=== PATIENT | female | born 1945 | race Caucasian/White ===

== ENCOUNTER 2017-10-30 03:31 | Emergency (ER) | payer MEDICARE, OTHER ==
[~2017-10-30] VITALS: Ht 177.8 cm; Wt 104.5 kg
[~2017-10-30 03:31] MED LIST: ALBU17AE26 INH; ASPI-1265 PO; BECL8.7A5 IH; DULO-31 PO; ESOM40CA30 PO; FENT1PAT7 TD; FURO-150 PO; GLIP10TA11 PO; LINA5TAB4 PO; METF500T PO; NEBI5TAB10 PO; POTA20TA19 PO; PRAM1TAB4 PO; PRED5TAB PO; QUET25TA PO
[2017-10-30 04:04] LABS: BASOPHILS # (AUTO) 0.1 X10'3 (0-0.2); BASOPHILS % (AUTO) 0.7 % (0-1); EOSINOPHILS # (AUTO) 0.3 X10'3 (0-0.9); EOSINOPHILS % (AUTO) 4.1 % (0-6); HEMATOCRIT 37.9 % (35.0-45.0); LYMPHOCYTES # (AUTO) 0.7 X10'3 (1.1-4.8); LYMPHOCYTES % (AUTO) 9.8 % (21-51); MEAN CORPUSCULAR HEMOGLOBIN 30.9 PG (27.0-31.0); MEAN CORPUSCULAR HGB CONC 34.3 % (33.0-36.5); MEAN CORPUSCULAR VOLUME 90.1 FL (78-98); MEAN PLATELET VOLUME 9.5 FL (7.4-10.4); MONOCYTES # (AUTO) 0.2 X10'3 (0-0.9); MONOCYTES % (AUTO) 2.9 % (2-12); NEUTROPHILS # (AUTO) 6.2 X10'3 (1.8-7.7); NEUTROPHILS % (AUTO) 82.5 % (42-75); PLATELET COUNT 186 X10'3 (140-440); WHITE BLOOD COUNT 7.6 X10'3 (4.5-11.0)
[2017-10-30 04:19] LABS: ALANINE AMINOTRANSFERASE 45 U/L (12-78); ALBUMIN 3.3 G/DL (3.4-5.0); ALBUMIN/GLOBULIN RATIO 0.7 (1.1-1.5); ALKALINE PHOSPHATASE 118 IU/L (46-116); ANION GAP 11 (8-16); ASPARTATE AMINO TRANSFERASE 28 U/L (10-37); BILIRUBIN,TOTAL 0.2 MG/DL (0.1-1.0); BLOOD UREA NITROGEN 12 MG/DL (7-18); BUN/CREATININE RATIO 10.1 (6.6-38.0); CALCIUM 9.2 MG/DL (8.5-10.1); CHLORIDE 103 MMOL/L (99-107); CREATININE 1.19 MG/DL (0.40-0.90); GLUCOSE 209 MG/DL (70-104); MAGNESIUM 1.5 MG/DL (1.5-2.4); POTASSIUM 4.2 MMOL/L (3.5-5.1); SODIUM 141 MMOL/L (135-145); TOTAL CARBON DIOXIDE 26.9 MMOL/L (24-32); TOTAL PROTEIN 8.1 G/DL (6.4-8.2); eGFR 44 ML/MIN
[2017-10-30 04:48] VITALS: BP 88/58
== END 2017-10-30 04:50 | disposition home or self-care (01) ==
LOC: ER 03:32
DX: M62.838 Other muscle spasm (principal); I11.0 Hypertensive heart disease with heart failure; I50.9 Heart failure, unspecified; I25.10 Atherosclerotic heart disease of native coronary artery without angina pectoris; J44.9 Chronic obstructive pulmonary disease, unspecified; K21.9 Gastro-esophageal reflux disease without esophagitis; E11.9 Type 2 diabetes mellitus without complications; M06.9 Rheumatoid arthritis, unspecified; G89.29 Other chronic pain; Z79.82 Long term (current) use of aspirin; Z79.84 Long term (current) use of oral hypoglycemic drugs; Z88.5 Allergy status to narcotic agent; Z88.8 Allergy status to other drugs, medicaments and biological substances
CPT/HCPCS: 36415; 80053; 83735; 85025; 99284

== ENCOUNTER 2018-01-11 22:49 | Emergency (ER) | payer MEDICARE, OTHER ==
[~2018-01-11] VITALS: Ht 172.7 cm; Wt 110.9 kg
[~2018-01-11 22:49] MED LIST changes: -BECL8.7A5 IH; +BUDE10.2 INH; +CALC1TAB77 PO; +CHOL100046 PO; +ERGO500014 PO; +FERR-119 PO; -GLIP10TA11 PO; +HYDR-565 PO; +LANTUS SQ; -NEBI5TAB10 PO; +POTA-82 PO; -POTA20TA19 PO; +ZIN220C PO; +acetylcysteine PO
[2018-01-12 02:11] LABS: BASOPHILS # (AUTO) 0.1 X10'3 (0-0.2); BASOPHILS % (AUTO) 0.6 % (0-1); EOSINOPHILS # (AUTO) 0.4 X10'3 (0-0.9); EOSINOPHILS % (AUTO) 3.6 % (0-6); HEMATOCRIT 43.5 % (35.0-45.0); HEMOGLOBIN 14.3 g/dl (12.0-16.0); LYMPHOCYTES # (AUTO) 0.9 X10'3 (1.1-4.8); LYMPHOCYTES % (AUTO) 9.1 % (21-51); MEAN CORPUSCULAR HEMOGLOBIN 29.7 PG (27.0-31.0); MEAN CORPUSCULAR HGB CONC 32.9 % (33.0-36.5); MEAN CORPUSCULAR VOLUME 90.2 FL (78-98); MEAN PLATELET VOLUME 9.5 FL (7.4-10.4); MONOCYTES # (AUTO) 0.1 X10'3 (0-0.9); NEUTROPHILS # (AUTO) 8.8 X10'3 (1.8-7.7); NEUTROPHILS % (AUTO) 85.7 % (42-75); PLATELET COUNT 336 X10'3 (140-440); RED BLOOD COUNT 4.82 X10'6 (4.20-5.60); RED CELL DISTRIBUTION WIDTH 14.7 % (11.5-14.5); WHITE BLOOD COUNT 10.2 X10'3 (4.5-11.0)
[2018-01-12 02:14] LABS: ALANINE AMINOTRANSFERASE 35 U/L (12-78); ALBUMIN 3.3 G/DL (3.4-5.0); ALBUMIN/GLOBULIN RATIO 0.6 (1.1-1.5); ALKALINE PHOSPHATASE 122 IU/L (46-116); ANION GAP 11 (8-16); ASPARTATE AMINO TRANSFERASE 38 U/L (10-37); BILIRUBIN,TOTAL 0.2 MG/DL (0.1-1.0); BLOOD UREA NITROGEN 19 MG/DL (7-18); BUN/CREATININE RATIO 14.8 (6.6-38.0); CHLORIDE 102 MMOL/L (99-107); CREATININE 1.28 MG/DL (0.40-0.90); GLUCOSE 149 MG/DL (70-104); POTASSIUM 3.9 MMOL/L (3.5-5.1); SODIUM 140 MMOL/L (135-145); TOTAL CARBON DIOXIDE 27.3 MMOL/L (24-32); TOTAL PROTEIN 9.1 G/DL (6.4-8.2); eGFR 41 ML/MIN
[2018-01-12] MEDS ORDERED: LEVO750T21 PO (02:54)
[2018-01-12] MEDS ORDERED: dexamethasone 4mg tablet PO ONE (02:55)
[2018-01-12] MEDS ORDERED: levoFLOXACIN 500mg tablet PO ONE (02:55)
[2018-01-12 03:34] VITALS: BP 104/54
== END 2018-01-12 03:35 | disposition home or self-care (01) ==
LOC: ER 22:50
DX: J40 Bronchitis, not specified as acute or chronic (principal); J44.9 Chronic obstructive pulmonary disease, unspecified; K21.9 Gastro-esophageal reflux disease without esophagitis; I48.91 Unspecified atrial fibrillation; I25.10 Atherosclerotic heart disease of native coronary artery without angina pectoris; I11.0 Hypertensive heart disease with heart failure; I50.9 Heart failure, unspecified; G89.29 Other chronic pain; E11.9 Type 2 diabetes mellitus without complications; M19.90 Unspecified osteoarthritis, unspecified site; M06.9 Rheumatoid arthritis, unspecified; Z90.49 Acquired absence of other specified parts of digestive tract; Z88.5 Allergy status to narcotic agent; Z88.8 Allergy status to other drugs, medicaments and biological substances; Z79.82 Long term (current) use of aspirin; Z79.4 Long term (current) use of insulin; Z79.899 Other long term (current) drug therapy; Z79.84 Long term (current) use of oral hypoglycemic drugs
CPT/HCPCS: 36415; 71046; 80053; 85025; 93005; 99285; J8540

== ENCOUNTER 2018-06-07 07:07 | Observation (INO) | payer MEDICARE, OTHER ==
[2018-06-06 14:09] LABS: BASOPHILS % (AUTO) 0.4 % (0-1); EOSINOPHILS # (AUTO) 0.4 X10'3 (0-0.9); EOSINOPHILS % (AUTO) 7.5 % (0-6); HEMATOCRIT 37.5 % (35.0-45.0); HEMOGLOBIN 12.6 g/dl (12.0-16.0); LYMPHOCYTES % (AUTO) 20.1 % (21-51); MEAN CORPUSCULAR HEMOGLOBIN 29.1 PG (27.0-31.0); MEAN CORPUSCULAR HGB CONC 33.6 % (33.0-36.5); MEAN CORPUSCULAR VOLUME 86.7 FL (78-98); MEAN PLATELET VOLUME 10.2 FL (7.4-10.4); MONOCYTES # (AUTO) 0.4 X10'3 (0-0.9); NEUTROPHILS # (AUTO) 3.3 X10'3 (1.8-7.7); PLATELET COUNT 188 X10'3 (140-440); RED BLOOD COUNT 4.32 X10'6 (4.20-5.60); RED CELL DISTRIBUTION WIDTH 15.6 % (11.5-14.5)
[2018-06-06 14:15] LABS: ALBUMIN 3.3 G/DL (3.4-5.0); ANION GAP 7 (8-16); BLOOD UREA NITROGEN 19 MG/DL (7-18); BUN/CREATININE RATIO 17.1 (6.6-38.0); CALCIUM 8.9 MG/DL (8.5-10.1); CHLORIDE 104 MMOL/L (99-107); CREATININE 1.11 MG/DL (0.40-0.90); GLUCOSE 120 MG/DL (70-104); POTASSIUM 4.4 MMOL/L (3.5-5.1); SODIUM 140 MMOL/L (135-145); TOTAL CARBON DIOXIDE 29.5 MMOL/L (24-32); eGFR 48 ML/MIN
[2018-06-06 14:59] LABS: PARTIAL THROMBOPLASTIN TIME 32 SECONDS (22-32); PROTHROMBIN TIME 10.3 SECONDS (9.0-12.0)
[2018-06-07] VITALS (21 sets, daily range): BP systolic 108–169; BP diastolic 43–90
[~2018-06-07] VITALS: Ht 172.7 cm; Wt 109.4 kg
[2018-06-07] MEDS ORDERED: diphenhydrAMINE 25mg capsule PO PRN (07:30)
[2018-06-07] MEDS ORDERED: DULO60CA45 PO (07:43)
[2018-06-07] MEDS ORDERED: ASPI81TA52 PO (07:43)
[2018-06-07] MEDS ORDERED: CALC600T12 PO (07:48)
[2018-06-07] MEDS ORDERED: POTA-82 PO (07:48)
[2018-06-07] MEDS ORDERED: ALBU8.5H8 INH (07:48)
[2018-06-07] MEDS ORDERED: CLOP75TA15 PO (07:49)
[2018-06-07] MEDS: normal saline 1000ml 1,000 ML IV SCH ×2 (08:17→16:32)
[2018-06-07] MEDS ORDERED: iohexol 350MG/ML 100ml bottle IV ONE ×2 (08:53→10:20)
[2018-06-07] MEDS ORDERED: LIDOcaine 1% 30ml preserv. free vial ONE ×2 (08:53→15:15)
[2018-06-07] MEDS ORDERED: heparin 1,000unit/ml 10ml vial 10 ML ONE (08:53)
[2018-06-07] MEDS ORDERED: midazolam 2 mg/2 ml injection ONE (08:53)
[2018-06-07] MEDS ORDERED: fentaNYL/PF 50MCG/1 ML 2ML syringe ONE (08:53)
[2018-06-07] MEDS ORDERED: nitroGLYCERIN-Tridil 50MG/D5W 250 ML IV ONE (08:53)
[2018-06-07] MEDS ORDERED: iohexol 350 MG/ML 50ML vial IV ONE ×3 (08:53→11:22)
[2018-06-07] MEDS ORDERED: HYDROmorphone 1 mg/ml syringe ONE (10:07)
[2018-06-07] MEDS ORDERED: adenosine 90 MG/30ml kit =/or below 120kg Cath Lab IV ONE (10:34)
[2018-06-07] MEDS ORDERED: clopidogrel 300mg tablet ONE (11:23)
[2018-06-07] MEDS ORDERED: proCHLORperazine 10 MG/2 ml inj IV PRN (12:35)
[2018-06-07] MEDS ORDERED: HYDROcodone/acetaminophen 10/325mg tab PO PRN (12:35)
[2018-06-07] MEDS ORDERED: acetaminophen 325mg tablet PO PRN (12:35)
[2018-06-07] MEDS ORDERED: OXAZEpam 15mg capsule PO PRN (12:35)
[2018-06-07] MEDS ORDERED: cyclobenzaprine 10mg tablet PO PRN (12:40)
[2018-06-07] MEDS ORDERED: aspirin 81mg tab.chew PO ONE (12:40)
[2018-06-07] MEDS ORDERED: non-formulary drug (Albuterol Sulfate (Proair Hfa) 2 PUFFS) INH SCH (12:45)
[2018-06-07] MEDS: furosemide 20MG tablet PO SCH ×2 (12:55→21:01)
[2018-06-07] MEDS: metFORMIN 500mg tablet PO SCH (12:57)
[2018-06-07] MEDS ORDERED: fentaNYL 75 MCG/hour patch.TD72 TD SCH (14:09)
[2018-06-07] MEDS ORDERED: albuterol 2.5 MG/3 ML nebule NEB PRN (14:15)
[2018-06-07] MEDS: HYDROcodone/acetaminophen 10/325mg tab PO PRN ×2 (14:57→21:01)
[2018-06-07] MEDS: albuterol 2.5 MG/3 ML nebule NEB SCH ×2 (15:00→22:59)
[2018-06-07] MEDS: docusate sod 100mg capsule PO SCH (20:00)
[2018-06-07] MEDS ORDERED: insulin glargine (Lantus) pen - multi-dose SQ SCH (21:00)
[2018-06-07] MEDS ORDERED: magnesium hydroxide 30ml (MOM) UD suspension PO SCH (21:00)
[2018-06-07] MEDS ORDERED: potassium Cl 20 mEq SR tablet PO SCH (21:00)
[2018-06-07] MEDS: pramipexole 1mg tablet PO SCH (21:19)
[2018-06-07] MEDS: budesonide 0.5mg/2ml UD nebule IH SCH (22:58)
[2018-06-08 03:00] VITALS: BP 133/43
[2018-06-08] MEDS: albuterol 2.5 MG/3 ML nebule NEB SCH ×2 (03:27→08:05)
[2018-06-08 06:00] VITALS: BP 114/60
[2018-06-08 06:23] LABS: BASOPHILS % (AUTO) 0.2 % (0-1); EOSINOPHILS # (AUTO) 0.3 X10'3 (0-0.9); EOSINOPHILS % (AUTO) 4.9 % (0-6); HEMATOCRIT 34.9 % (35.0-45.0); HEMOGLOBIN 11.6 g/dl (12.0-16.0); LYMPHOCYTES # (AUTO) 0.8 X10'3 (1.1-4.8); LYMPHOCYTES % (AUTO) 12.9 % (21-51); MEAN CORPUSCULAR HEMOGLOBIN 28.9 PG (27.0-31.0); MEAN CORPUSCULAR HGB CONC 33.2 % (33.0-36.5); MEAN CORPUSCULAR VOLUME 87.1 FL (78-98); MEAN PLATELET VOLUME 10.8 FL (7.4-10.4); MONOCYTES # (AUTO) 0.3 X10'3 (0-0.9); MONOCYTES % (AUTO) 5.8 % (2-12); NEUTROPHILS # (AUTO) 4.5 X10'3 (1.8-7.7); NEUTROPHILS % (AUTO) 76.2 % (42-75); PLATELET COUNT 149 X10'3 (140-440); RED BLOOD COUNT 4.01 X10'6 (4.20-5.60); RED CELL DISTRIBUTION WIDTH 15.6 % (11.5-14.5); WHITE BLOOD COUNT 5.9 X10'3 (4.5-11.0)
[2018-06-08 07:08] LABS: ALBUMIN 2.9 G/DL (3.4-5.0); ANION GAP 7 (8-16); BLOOD UREA NITROGEN 20 MG/DL (7-18); BUN/CREATININE RATIO 17.1 (6.6-38.0); CALCIUM 8.6 MG/DL (8.5-10.1); CHLORIDE 103 MMOL/L (99-107); CHOLESTEROL 129 MG/DL (0-200); CREATININE 1.17 MG/DL (0.40-0.90); GLUCOSE 143 MG/DL (70-104); HDL CHOLESTEROL 26 MG/DL (35-60); LDL CHOLESTEROL 70 MG/DL (50-100); POTASSIUM 3.7 MMOL/L (3.5-5.1); SODIUM 139 MMOL/L (135-145); TOTAL CARBON DIOXIDE 28.6 MMOL/L (24-32); TRIGLYCERIDES 272 MG/DL (20-135); eGFR 45 ML/MIN
[2018-06-08] MEDS ORDERED: pantoprazole 40mg Tablet.DR PO SCH (07:30)
[2018-06-08] MEDS ORDERED: METF500T PO (07:43)
[2018-06-08] MEDS ORDERED: ATOR40TA PO (07:43)
[2018-06-08] MEDS ORDERED: ASPI-1 PO (07:43)
[2018-06-08] MEDS: docusate sod 100mg capsule PO SCH (07:53)
[2018-06-08] MEDS: furosemide 20MG tablet PO SCH (07:54)
[2018-06-08] MEDS: pramipexole 1mg tablet PO SCH (07:59)
[2018-06-08] MEDS ORDERED: ferrous sulfate 325mg tablet PO SCH (08:00)
[2018-06-08] MEDS ORDERED: QUEtiapine 25mg tablet PO SCH (08:00)
[2018-06-08] MEDS ORDERED: ZINC SULFATE PO SCH (08:00)
[2018-06-08] MEDS ORDERED: linagliptin 5mg tablet PO SCH (08:00)
[2018-06-08] MEDS ORDERED: potassium Cl 20 mEq SR tablet PO SCH (08:00)
[2018-06-08] MEDS ORDERED: predniSONE 5mg tablet PO SCH (08:00)
[2018-06-08] MEDS ORDERED: vitamin D (cholecalciferol) 1,000 unit tablet PO SCH (08:00)
[2018-06-08] MEDS ORDERED: duloxetine 30mg CAPSULE.DR PO SCH (08:00)
[2018-06-08] MEDS ORDERED: clopidogrel 75mg tablet PO SCH (08:00)
[2018-06-08] MEDS: budesonide 0.5mg/2ml UD nebule IH SCH (08:05)
[2018-06-08] MEDS ORDERED: aspirin 325mg tablet PO SCH (08:30)
== END 2018-06-08 12:20 | disposition home or self-care (01) ==
LOC: SSTAY O 07:07 → PCU 3S 07:08 → SSTAY O 18:49
PROVIDERS: ADMIT Internal Medicine Cardiovascular Disease; ATTEND Internal Medicine Cardiovascular Disease
DX: I25.119 Atherosclerotic heart disease of native coronary artery with unspecified angina pectoris (principal); E11.9 Type 2 diabetes mellitus without complications; I10 Essential (primary) hypertension; E78.5 Hyperlipidemia, unspecified; Z79.82 Long term (current) use of aspirin; Z79.4 Long term (current) use of insulin
CPT/HCPCS: 36415; 80048; 80061; 82948; 85025; 85347; 85610; 85730; 87070; 92920; 92978; 93005; 93458; 94640; 94760; 96374; A6257; A6449; C1725; C1753; C1760; C1769; C1874; C9600; G0378; J1170; J1644; J1815; J2250; J3010; J3490; J7030; J7512; J7626; Q0163; Q9967; 92921; 99152; 99153; C9601; C9602; J0153

== ENCOUNTER 2018-07-14 17:12 | Emergency (ER) | payer MEDICARE, OTHER ==
[~2018-07-14] VITALS: Ht 172.7 cm; Wt 104.0 kg
[~2018-07-14 17:12] MED LIST changes: +ALBU8.5H8 INH; +ASPI-1 PO; -ASPI-1265 PO; +ATOR40TA PO; -CALC1TAB77 PO; +CALC600T12 PO; +CLOP75TA15 PO; -DULO-31 PO; +DULO60CA45 PO; +HYDR-4353 PO; -HYDR-565 PO; -acetylcysteine PO
[2018-07-14 17:17] VITALS: BP 142/62
[2018-07-14] MEDS ORDERED: proparacaine 0.5% ophthalmic drops 15ml EACHEYE ONE (17:35)
[2018-07-14] MEDS ORDERED: ERYT1OIN6 RIGHTEYE (17:48)
== END 2018-07-14 18:24 | disposition home or self-care (01) ==
LOC: ER 17:13
DX: T15.91XA Foreign body on external eye, part unspecified, right eye, initial encounter (principal); I48.91 Unspecified atrial fibrillation; I25.10 Atherosclerotic heart disease of native coronary artery without angina pectoris; I11.0 Hypertensive heart disease with heart failure; I50.9 Heart failure, unspecified; J44.9 Chronic obstructive pulmonary disease, unspecified; K21.9 Gastro-esophageal reflux disease without esophagitis; E11.9 Type 2 diabetes mellitus without complications; M19.90 Unspecified osteoarthritis, unspecified site; G89.29 Other chronic pain; Z90.49 Acquired absence of other specified parts of digestive tract; Z88.5 Allergy status to narcotic agent; Z88.8 Allergy status to other drugs, medicaments and biological substances; Z79.82 Long term (current) use of aspirin; Z79.899 Other long term (current) drug therapy; Z79.4 Long term (current) use of insulin
CPT/HCPCS: 99283

== ENCOUNTER 2018-08-02 20:53 | Emergency (ER) | payer MEDICARE, OTHER ==
[~2018-08-02] VITALS: Ht 172.7 cm; Wt 104.5 kg
[~2018-08-02 20:53] MED LIST changes: +ERYT1OIN6 RIGHTEYE
[2018-08-02] MEDS ORDERED: ketorolac trometh inj. 60 MG/2 ML VIAL IM ONE (21:15)
[2018-08-02] MEDS ORDERED: [UNRECOGNIZED DRUG - OTHER] PO (21:39)
[2018-08-02] MEDS ORDERED: FENT1PAT10 TP (21:39)
[2018-08-02 22:03] LABS: BASOPHILS % (AUTO) 0.2 % (0-1); EOSINOPHILS # (AUTO) 0.2 X10'3 (0-0.9); EOSINOPHILS % (AUTO) 1.5 % (0-6); HEMATOCRIT 39.5 % (35.0-45.0); HEMOGLOBIN 12.9 g/dl (12.0-16.0); LYMPHOCYTES # (AUTO) 0.6 X10'3 (1.1-4.8); LYMPHOCYTES % (AUTO) 4.1 % (21-51); MEAN CORPUSCULAR HGB CONC 32.6 % (33.0-36.5); MEAN CORPUSCULAR VOLUME 88.9 FL (78-98); MEAN PLATELET VOLUME 9.9 FL (7.4-10.4); MONOCYTES # (AUTO) 0.3 X10'3 (0-0.9); NEUTROPHILS # (AUTO) 13.2 X10'3 (1.8-7.7); NEUTROPHILS % (AUTO) 92.2 % (42-75); PLATELET COUNT 163 X10'3 (140-440); RED BLOOD COUNT 4.44 X10'6 (4.20-5.60); RED CELL DISTRIBUTION WIDTH 16.3 % (11.5-14.5); WHITE BLOOD COUNT 14.3 X10'3 (4.5-11.0)
[2018-08-02 22:20] LABS: ALANINE AMINOTRANSFERASE 22 U/L (12-78); ALBUMIN/GLOBULIN RATIO 0.7 (1.1-1.5); ALKALINE PHOSPHATASE 109 IU/L (46-116); ANION GAP 5 (8-16); ASPARTATE AMINO TRANSFERASE 21 U/L (10-37); BILIRUBIN,TOTAL 0.3 MG/DL (0.1-1.0); BLOOD UREA NITROGEN 19 MG/DL (7-18); BUN/CREATININE RATIO 14.7 (6.6-38.0); CALCIUM 8.4 MG/DL (8.5-10.1); CHLORIDE 103 MMOL/L (99-107); CREATININE 1.29 MG/DL (0.40-0.90); GLUCOSE 135 MG/DL (70-104); MAGNESIUM 1.6 MG/DL (1.5-2.4); POTASSIUM 4.5 MMOL/L (3.5-5.1); SODIUM 137 MMOL/L (135-145); TOTAL CARBON DIOXIDE 29.5 MMOL/L (24-32); TOTAL PROTEIN 7.4 G/DL (6.4-8.2); eGFR 41 ML/MIN
[2018-08-02 22:34] LABS: CLARITY,URINE SLIGHTLY CLOUDY (Clear); COLOR,URINE YELLOW (Yellow); GLUCOSE, URINE NEGATIVE (Neg); KETONES,URINE NEGATIVE (Neg); LEUKOCYTE ESTERASE ,URINE MODERATE (Neg); NITRITES, URINE NEGATIVE (Neg); OCCULT BLOOD,URINE TRACE-INTACT (Neg); PROTEIN,URINE NEGATIVE (Neg); UROBILINOGEN,URINE 0.2 E.U/dL (0.2-1.0)
[2018-08-02 22:47] LABS: UA COLLECTION TYPE STRAIGHT CATH
[2018-08-02 22:49] LABS: BACTERIA,URINE 4+ /HPF (Neg); WBC,URINE 50-100 /HPF (0-4)
[2018-08-02 22:50] LABS: SQUAMOUS EPITHELIAL CELL,UR MANY /LPF (FEW); WBC CLUMPS,URINE MODERATE /HPF (NEGATIVE)
[2018-08-02 22:51] LABS: RBC,URINE 0-2 /HPF (0-2); RENAL CELLS, URINE FEW /HPF
[2018-08-02] MEDS ORDERED: CefTRIAXone/D5W-Rocephin 1gm 50 ML IV ONE (23:15)
[2018-08-02] MEDS ORDERED: CefTRIAXone 1000mg IM Kit (w/lidocaine diluent) IM ONE (23:30)
[2018-08-02] MEDS ORDERED: CIPR-230 PO (23:34)
[2018-08-03 00:14] VITALS: BP 181/90
== END 2018-08-03 00:17 | disposition home or self-care (01) ==
LOC: ER 20:54
DX: N39.0 Urinary tract infection, site not specified (principal); R06.02 Shortness of breath; I48.91 Unspecified atrial fibrillation; I25.10 Atherosclerotic heart disease of native coronary artery without angina pectoris; I11.0 Hypertensive heart disease with heart failure; I50.9 Heart failure, unspecified; J44.9 Chronic obstructive pulmonary disease, unspecified; K21.9 Gastro-esophageal reflux disease without esophagitis; E11.9 Type 2 diabetes mellitus without complications; G89.29 Other chronic pain; M06.9 Rheumatoid arthritis, unspecified; Z90.49 Acquired absence of other specified parts of digestive tract; Z98.61 Coronary angioplasty status; Z88.5 Allergy status to narcotic agent; Z88.8 Allergy status to other drugs, medicaments and biological substances; Z79.82 Long term (current) use of aspirin; Z79.2 Long term (current) use of antibiotics; Z79.84 Long term (current) use of oral hypoglycemic drugs; Z79.899 Other long term (current) drug therapy
CPT/HCPCS: 36415; 71045; 80053; 81001; 83735; 84145; 85025; 87077; 87088; 87186; 87502; 87503; 93005; 96372; 99285; J0696; J1885; P9612

== ENCOUNTER 2018-09-28 02:17 | Emergency (ER) | payer MEDICARE, OTHER ==
[~2018-09-28] VITALS: Ht 172.7 cm; Wt 114.0 kg
[~2018-09-28 02:17] MED LIST changes: -ALBU17AE26 INH; -ALBU8.5H8 INH; -BUDE10.2 INH; -ERYT1OIN6 RIGHTEYE; +FENT1PAT10 TP; -FENT1PAT7 TD; -LANTUS SQ; -PRED5TAB PO; +[UNRECOGNIZED DRUG - OTHER] PO
[2018-09-28 02:55] LABS: BASOPHILS % (AUTO) 0.6 % (0-1); EOSINOPHILS # (AUTO) 0.3 X10'3 (0-0.9); EOSINOPHILS % (AUTO) 3.9 % (0-6); HEMATOCRIT 40.6 % (35.0-45.0); HEMOGLOBIN 12.9 g/dl (12.0-16.0); LYMPHOCYTES % (AUTO) 12.8 % (21-51); MEAN CORPUSCULAR HGB CONC 31.8 % (33.0-36.5); MEAN CORPUSCULAR VOLUME 91.2 FL (78-98); MONOCYTES # (AUTO) 0.2 X10'3 (0-0.9); NEUTROPHILS # (AUTO) 6.4 X10'3 (1.8-7.7); NEUTROPHILS % (AUTO) 79.7 % (42-75); PLATELET COUNT 182 X10'3 (140-440); RED BLOOD COUNT 4.46 X10'6 (4.20-5.60); RED CELL DISTRIBUTION WIDTH 14.3 % (11.5-14.5); WHITE BLOOD COUNT 7.9 X10'3 (4.5-11.0)
[2018-09-28 03:05] LABS: PROTHROMBIN TIME 10.2 SECONDS (9.0-12.0)
[2018-09-28 03:06] LABS: ALANINE AMINOTRANSFERASE 26 U/L (12-78); ALBUMIN 3.4 G/DL (3.4-5.0); ALBUMIN/GLOBULIN RATIO 0.7 (1.1-1.5); ALKALINE PHOSPHATASE 151 IU/L (46-116); ANION GAP 9 (8-16); ASPARTATE AMINO TRANSFERASE 16 U/L (10-37); BILIRUBIN,TOTAL 0.2 MG/DL (0.1-1.0); BLOOD UREA NITROGEN 22 MG/DL (7-18); BUN/CREATININE RATIO 16.7 (6.6-38.0); CALCIUM 9.5 MG/DL (8.5-10.1); CHLORIDE 102 MMOL/L (99-107); CREATININE 1.32 MG/DL (0.40-0.90); GLUCOSE 211 MG/DL (70-104); PARTIAL THROMBOPLASTIN TIME 30 SECONDS (22-32); POTASSIUM 4.1 MMOL/L (3.5-5.1); SODIUM 139 MMOL/L (135-145); TOTAL CARBON DIOXIDE 27.9 MMOL/L (24-32); TOTAL PROTEIN 8.2 G/DL (6.4-8.2); eGFR 39 ML/MIN
[2018-09-28 03:10] LABS: TROPONIN I < 0.04 NG/ML (0.0-0.05)
--- NOTE | 2018-09-28 04:44 | NUR ---
PATIENT WAS NOT IN LOBBY WHEN CALLED TO BE PLACED IN ROOM. APPARENTLY SHE WAS IN THE RESTROOM. ANOTHER PT WAS ROOMED WHEN WE WERE UNABLE TO FIND HER SO NOW SHE IS WAITING BACK IN THE LOBBY FOR A VACANT ROOM AGAIN.
--- NOTE | 2018-09-28 05:38 | NUR ---
BOTH MYSELF AND ANOTHER RN HAVE TRIED 2 TIMES EACH TO GET 3HR TROP DRAWN FROM PT. WE HAVE BOTH BEEN UNSUCCESSFUL. ANOTHER RN IS TRYING AT THIS TIME. PT IS HAVING A HARD TIME HOLDING STILL AND IS COUGHING WHILE ATTEMPTING TO DRAW. PT ALSO REQUESTING TO HAVE BLOOD DRAWN FROM SPECIFIC AREA
--- NOTE | 2018-09-28 05:54 | NUR ---
3 HR TROP SENT TO LAB
[2018-09-28 06:51] VITALS: BP 140/89
== END 2018-09-28 06:56 | disposition home or self-care (01) ==
LOC: ER 02:17
DX: R07.89 Other chest pain (principal); I11.0 Hypertensive heart disease with heart failure; I25.10 Atherosclerotic heart disease of native coronary artery without angina pectoris; I50.9 Heart failure, unspecified; I48.91 Unspecified atrial fibrillation; K21.9 Gastro-esophageal reflux disease without esophagitis; G89.29 Other chronic pain; J44.9 Chronic obstructive pulmonary disease, unspecified; E11.9 Type 2 diabetes mellitus without complications; Z90.49 Acquired absence of other specified parts of digestive tract; Z98.62 Peripheral vascular angioplasty status; Z88.5 Allergy status to narcotic agent; Z79.82 Long term (current) use of aspirin; Z79.84 Long term (current) use of oral hypoglycemic drugs
CPT/HCPCS: 36415; 71045; 80053; 84484; 85025; 85610; 85730; 93005; 99284

== ENCOUNTER 2018-11-13 13:05 | Inpatient (IN) | payer MEDICARE, OTHER | END 2018-11-17 17:02 | disposition home health service (06) | LOC: ER 13:05 → ED HOLD 15:53 → SUR 3N 20:40 | DX: J44.1 Chronic obstructive pulmonary disease with (acute) exacerbation (principal); J18.9 Pneumonia, unspecified organism; J96.10 Chronic respiratory failure, unspecified whether with hypoxia or hypercapnia; J44.0 Chronic obstructive pulmonary disease with (acute) lower respiratory infection; E11.40 Type 2 diabetes mellitus with diabetic neuropathy, unspecified; I25.10 Atherosclerotic heart disease of native coronary artery without angina pectoris ==

== ENCOUNTER 2019-03-04 15:46 | Inpatient (IN) | payer MEDICARE, OTHER ==
[~2019-03-04] VITALS: Ht 172.7 cm; Wt 109.0 kg
[~2019-03-04 15:46] MED LIST changes: +ALBU8.5H8 INH; -ASPI-1 PO; +ASPI-845 PO; -ATOR40TA PO; +ATOR40TA72 PO; +BUDE10.22 INH; +CALC-1051 PO; -CALC600T12 PO; -CHOL100046 PO; -CLOP75TA15 PO; +CLOP75TA35 PO; -ERGO500014 PO; +ERGO500056 PO; -ESOM40CA30 PO; +ESOM40CA49 PO; -FERR-119 PO; -FURO-150 PO; +FURO40TA4 PO; +GABA-530 PO; +HYDR-3973 PO; -HYDR-4353 PO; +HYDR200T84 PO; +INSU100V11 SQ; +INSU100V9 SQ; +LACT1CAP26 PO; +METF-436 PO; -METF500T PO; +OSEL30CA PO; -ZIN220C PO; -[UNRECOGNIZED DRUG - OTHER] PO
[2019-03-04] MEDS ORDERED: acetaminophen 325mg tablet PO STA (16:03)
[2019-03-04] MEDS ORDERED: ipratropium/albuterol 3ml nebule NEB ONE (16:05)
[2019-03-04] MEDS ORDERED: normal saline 1000ML IV soln IV ONE (16:05)
[2019-03-04] MEDS ORDERED: levoFLOXACIN-Levaquin 750MG/D5 150 ML IV ONE (16:05)
[2019-03-04] MEDS ORDERED: predniSONE 20 mg tablet PO ONE (16:25)
[2019-03-04 16:44] LABS: EOSINOPHILS # (AUTO) 0.1 X10'3 (0-0.9); HEMOGLOBIN 13.1 g/dl (12.0-16.0); LYMPHOCYTES # (AUTO) 0.7 X10'3 (1.1-4.8)
[2019-03-04 16:45] LABS: BASOPHILS % (AUTO) 0.2 % (0-1); EOSINOPHILS % (AUTO) 1.5 % (0-6); HEMATOCRIT 40.1 % (35.0-45.0); LYMPHOCYTES % (AUTO) 8.4 % (21-51); MEAN CORPUSCULAR HEMOGLOBIN 28.8 PG (27.0-31.0); MEAN CORPUSCULAR HGB CONC 32.6 g/dL (33.0-36.5); MEAN CORPUSCULAR VOLUME 88.3 FL (78-98); MEAN PLATELET VOLUME 9.9 FL (7.4-10.4); MONOCYTES # (AUTO) 0.8 X10'3 (0-0.9); MONOCYTES % (AUTO) 9.3 % (2-12); NEUTROPHILS # (AUTO) 7.1 X10'3 (1.8-7.7); NEUTROPHILS % (AUTO) 80.6 % (42-75); PLATELET COUNT 188 X10'3 (140-440); RED BLOOD COUNT 4.55 X10'6 (4.20-5.60); WHITE BLOOD COUNT 8.8 X10'3 (4.5-11.0)
[2019-03-04 16:55] LABS: ALANINE AMINOTRANSFERASE 31 U/L (12-78); ALBUMIN 3.3 G/DL (3.4-5.0); ALBUMIN/GLOBULIN RATIO 0.6 (1.1-1.5); ALKALINE PHOSPHATASE 166 IU/L (46-116); ANION GAP 8 (8-16); ASPARTATE AMINO TRANSFERASE 20 U/L (10-37); BILIRUBIN,TOTAL 0.3 MG/DL (0.1-1.0); BLOOD UREA NITROGEN 27 MG/DL (7-18); BUN/CREATININE RATIO 20.5 (6.6-38.0); CALCIUM 9.4 MG/DL (8.5-10.1); CHLORIDE 100 MMOL/L (99-107); CREATININE 1.32 MG/DL (0.40-0.90); GLUCOSE 278 MG/DL (70-104); MAGNESIUM 1.8 MG/DL (1.5-2.4); POTASSIUM 3.7 MMOL/L (3.5-5.1); SODIUM 134 MMOL/L (135-145); TOTAL CARBON DIOXIDE 25.8 MMOL/L (24-32); TOTAL PROTEIN 8.5 G/DL (6.4-8.2); eGFR 39 ML/MIN
[2019-03-04 17:05] LABS: PARTIAL THROMBOPLASTIN TIME 39 SECONDS (22-32)
[2019-03-04] MEDS ORDERED: iohexol 350MG/ML 100ml bottle IV ONE (17:37)
--- NOTE | 2019-03-04 17:59 | NUR ---
BSC WITH HAT PROVIDED FOR URINE SPECIMAN, CLEAN CATCH INSTRUCTIONS, VERBALIZES UNDERSTANDING
[2019-03-04 18:23] LABS: CLARITY,URINE CLEAR (Clear); COLOR,URINE YELLOW (Yellow); GLUCOSE, URINE 500 mg/dl (Neg); KETONES,URINE NEGATIVE (Neg); LEUKOCYTE ESTERASE ,URINE NEGATIVE (Neg); NITRITES, URINE NEGATIVE (Neg); OCCULT BLOOD,URINE NEGATIVE (Neg); PROTEIN,URINE TRACE mg/dl (Neg); UROBILINOGEN,URINE 0.2 E.U/dL (0.2-1.0)
[2019-03-04 18:32] LABS: UA COLLECTION TYPE CLN CATCH MIDSTREAM
[2019-03-04 18:35] LABS: BACTERIA,URINE FEW /HPF (Neg); MUCUS STRANDS NONE SEEN /LPF (Neg); RBC,URINE NONE SEEN /HPF (0-2); SQUAMOUS EPITHELIAL CELL,UR MODERATE /LPF (FEW); WBC,URINE 0-4 /HPF (0-4)
[2019-03-04] MEDS ORDERED: glucagon, human recombinant 1mg kit SUBCUT PRN (19:30)
[2019-03-04] MEDS ORDERED: HYDROmorphone inj. 0.5 MG/0.5 ML DISP.SYRIN IV PRN (19:30)
[2019-03-04] MEDS ORDERED: acetaminophen 325mg tablet PO PRN ×2 (19:30)
[2019-03-04] MEDS ORDERED: dextrose ORAL solution 15 GM/59 ML bottle PO PRN ×2 (19:30)
[2019-03-04] MEDS ORDERED: potassium CL 10mEq/100ml bag 100 ML IV PRN (19:30)
[2019-03-04] MEDS ORDERED: potassium Cl 20 mEq SR tablet PO PRN ×2 (19:30)
[2019-03-04] MEDS ORDERED: MESSAGE TO PHARMACY PO ONE (19:30)
[2019-03-04] MEDS ORDERED: magnesium 4gm in 100ml NS 100 ML IV PRN (19:30)
[2019-03-04] MEDS ORDERED: magnesium 2GM in 50ml NS 50 ML IV PRN (19:30)
[2019-03-04] MEDS ORDERED: ondansetron/PF 4mg/2ml inj IV PRN (19:30)
[2019-03-04] MEDS ORDERED: mag hydrox/Alum hydrox/simeth 30ml oral suspension PO PRN (19:30)
[2019-03-04] MEDS ORDERED: docusate sod 100mg capsule PO PRN (19:30)
[2019-03-04] MEDS ORDERED: potassium Cl 40MEQ/NS 500ml 500 ML IV PRN (19:30)
[2019-03-04] MEDS ORDERED: ipratropium/albuterol 3ml nebule NEB PRN (19:30)
[2019-03-04] MEDS ORDERED: HYDROmorphone 1 mg/ml syringe IV PRN (19:30)
[2019-03-04] MEDS ORDERED: dextrose 50%-water 50ml dispensing syringe IV PRN ×2 (19:30)
[2019-03-04] MEDS ORDERED: BUDE10.2 INH (19:56)
[2019-03-04] MEDS ORDERED: DIGO125T78 PO (19:56)
[2019-03-04] MEDS ORDERED: ATOR40TA71 PO (19:56)
[2019-03-04] MEDS ORDERED: ALBU8.5H8 IH (19:59)
--- NOTE | 2019-03-04 20:47 | NUR ---
Patient in room . I have received report from MAHSA Jordan and had the opportunity to ask questions and assume patient care.
[2019-03-04 21:00] VITALS: BP 137/65
[2019-03-04] MEDS ORDERED: pramipexole 1mg tablet PO SCH (21:00)
--- NOTE | 2019-03-04 21:05 | NUR ---
Patient arrived to floor with tech via wheelchair, walked SBA to bed. No apparent distress.
[2019-03-04 21:17] LABS: HEMOGLOBIN A1C 10.4 % (4.5-6.2)
[2019-03-04] MEDS: insulin glargine (Lantus) pen - multi-dose SQ SCH (21:36)
[2019-03-04] MEDS: insulin Lispro (HumaLOG) vial - multi-dose SQ SCH (21:38)
[2019-03-04] MEDS: QUEtiapine 25mg tablet PO SCH (21:40)
[2019-03-04] MEDS: gabapentin 100mg capsule PO SCH (21:40)
[2019-03-04] MEDS: digoxin 125mcg (0.125mg) tablet PO SCH (21:41)
[2019-03-04] MEDS ORDERED: pramipexole 0.25mg tablet PO SCH (21:56)
[2019-03-04] MEDS ORDERED: pramipexole 0.25mg tablet PO ONE (22:20)
[2019-03-04] MEDS ORDERED: normal saline 1000ml 1,000 ML IV SCH (22:40)
[2019-03-04] MEDS: clonazePAM 0.5mg tablet PO PRN (22:41)
--- NOTE | 2019-03-04 23:25 | NUR ---
Patient c/o anxiety and pain (chronic). Has fentanyl patch on left upper shoulder which was placed at home this AM. Blood sugar prior to dinner was 434. Called MD to verify administration of dilaudid for chronic pain and ask whether he would like fluids for blood sugar. States dilaudid okay for chronic pain and to start NS @ 100. Patient polyphagic and polydypsic and has urinated 2x missing the hat.
[2019-03-05] VITALS: BP 129/62
[2019-03-05] MEDS: methylPREDNISolone sod succ 125mg/2ml vial IV SCH ×2 (00:53→08:17)
[2019-03-05] MEDS ORDERED: ipratropium 0.5 MG/2.5ML nebule IH SCH (02:00)
[2019-03-05] MEDS: levalbuterol 0.63mg/3ml nebule IH SCH ×4 (03:56→21:02)
[2019-03-05] MEDS: ipratropium 0.5 MG/2.5ML nebule IH SCH ×4 (03:56→21:02)
[2019-03-05 06:05] LABS: BASOPHILS % (AUTO) 0.1 % (0-1); EOSINOPHILS % (AUTO) 0.1 % (0-6); HEMATOCRIT 37.5 % (35.0-45.0); HEMOGLOBIN 12.7 g/dl (12.0-16.0); LYMPHOCYTES # (AUTO) 0.4 X10'3 (1.1-4.8); LYMPHOCYTES % (AUTO) 6.1 % (21-51); MEAN CORPUSCULAR HGB CONC 33.8 g/dL (33.0-36.5); MEAN CORPUSCULAR VOLUME 88.8 FL (78-98); MEAN PLATELET VOLUME 10.9 FL (7.4-10.4); MONOCYTES # (AUTO) 0.1 X10'3 (0-0.9); MONOCYTES % (AUTO) 1.1 % (2-12); NEUTROPHILS # (AUTO) 6.8 X10'3 (1.8-7.7); NEUTROPHILS % (AUTO) 92.6 % (42-75); PLATELET COUNT 182 X10'3 (140-440); RED BLOOD COUNT 4.22 X10'6 (4.20-5.60); RED CELL DISTRIBUTION WIDTH 14.7 % (11.5-14.5); WHITE BLOOD COUNT 7.3 X10'3 (4.5-11.0)
[2019-03-05 06:11] LABS: ALANINE AMINOTRANSFERASE 28 U/L (12-78); ALBUMIN/GLOBULIN RATIO 0.6 (1.1-1.5); ALKALINE PHOSPHATASE 148 IU/L (46-116); ANION GAP 9 (8-16); ASPARTATE AMINO TRANSFERASE 16 U/L (10-37); BILIRUBIN,TOTAL 0.3 MG/DL (0.1-1.0); BLOOD UREA NITROGEN 26 MG/DL (7-18); BUN/CREATININE RATIO 21.5 (6.6-38.0); CALCIUM 8.8 MG/DL (8.5-10.1); CHLORIDE 102 MMOL/L (99-107); CREATININE 1.21 MG/DL (0.40-0.90); GLUCOSE 421 MG/DL (70-104); MAGNESIUM 1.7 MG/DL (1.5-2.4); POTASSIUM 4.3 MMOL/L (3.5-5.1); SODIUM 134 MMOL/L (135-145); TOTAL CARBON DIOXIDE 23.4 MMOL/L (24-32); eGFR 43 ML/MIN
--- NOTE | 2019-03-05 06:47 | NUR ---
Patient in room [facility] 353. I have received report from Cira Haley RN and had the opportunity to ask questions and assume patient care.
--- NOTE | 2019-03-05 06:51 | NUR ---
Problems reprioritized. Patient report given, questions answered & plan of care reviewed with MAHSA ingram.
[2019-03-05 07:00] VITALS: BP 122/62
[2019-03-05] MEDS: K and/or MAG REPLACEMENT MC SCH (08:00)
[2019-03-05] MEDS: insulin Lispro (HumaLOG) vial - multi-dose SQ SCH ×4 (08:12→21:28)
[2019-03-05] MEDS: digoxin 125mcg (0.125mg) tablet PO SCH (08:16)
[2019-03-05] MEDS: aspirin 325mg tablet, delayed-release (Ecotrin) PO SCH (08:16)
[2019-03-05] MEDS: lactobacillus rhamnosus 10,000 MMU CELLS/CAPSULE PO SCH ×2 (08:16→21:00)
[2019-03-05] MEDS: pantoprazole 40mg Tablet.DR PO SCH (08:17)
[2019-03-05] MEDS: gabapentin 100mg capsule PO SCH ×3 (08:17→20:59)
[2019-03-05] MEDS: clopidogrel 75mg tablet PO SCH (08:17)
[2019-03-05] MEDS: duloxetine 30mg CAPSULE.DR PO SCH (08:17)
[2019-03-05] MEDS: atorvastatin 20mg tablet PO SCH ×2 (08:17→21:00)
[2019-03-05] MEDS: calcium carbonate/vitamin D3 tablet PO SCH ×2 (08:17→20:58)
[2019-03-05] MEDS: enoxaparin 40mg/0.4ml syringe SQ SCH (08:18)
[2019-03-05 11:00] VITALS: BP 115/64
--- NOTE | 2019-03-05 14:06 | NUR ---
DM Consult: A1C 10.4. Pt admit w/ community acquired PNA and COPD exacerbation hx HLD, COPD, T2DM. Pt reports being sick past week effecting appetite and shares she has trouble w/ diet at home but when RD offered verbal DM ed review pt declined. RD encouraged pt to attend CDE course; Written DM ed w/ RD contact information also provided. Pt reports has first appointment w/ chief deputy sheriff March 21 and is excited to receive help. Pt GLU increased to 416 following solumedrol initiation; RD d/w RN for increasing hyperglycemia protocol or Lantus to BID per MD approval for better coverage on steroids. PO 75% avg heart healthy/carb controlled meals and pt request double proteins TID as well as diet pepsi BILD; dietary notified. Pt currently on aspiration precautions; RD ordered BUSINESS DEVELOPMENT COORDINATOR BSS since no BSS yet this admit. Will continue to monitor. Rec: 1. continue carb controlled/heart healthy diet per BUSINESS DEVELOPMENT COORDINATOR recs 2. double proteins TID 3. wt per rx Addendum: 03/05/19 at [address] Amended: Links added.
[2019-03-05] MEDS: predniSONE 20 mg tablet PO SCH (15:54)
[2019-03-05] MEDS: clonazePAM 0.5mg tablet PO PRN (18:03)
--- NOTE | 2019-03-05 18:23 | NUR ---
Problems reprioritized. Patient report given, questions answered & plan of care reviewed with Cira Haley RN.
--- NOTE | 2019-03-05 18:24 | NUR ---
Patient in room [facility] 355. I have received report from MAHSA Tran and had the opportunity to ask questions and assume patient care.
[2019-03-05 20:00] VITALS: BP 120/60
[2019-03-05] MEDS: QUEtiapine 25mg tablet PO SCH (20:59)
[2019-03-05] MEDS: insulin glargine (Lantus) pen - multi-dose SQ SCH (21:26)
[2019-03-05] MEDS ORDERED: clonazePAM 1mg tablet PO PRN (22:50)
[2019-03-06] VITALS: BP 100/54
[2019-03-06] MEDS: ipratropium 0.5 MG/2.5ML nebule IH SCH ×2 (03:15→08:18)
[2019-03-06] MEDS: levalbuterol 0.63mg/3ml nebule IH SCH ×2 (03:15→08:18)
[2019-03-06 05:39] LABS: ALANINE AMINOTRANSFERASE 24 U/L (12-78); ALBUMIN 2.9 G/DL (3.4-5.0); ALBUMIN/GLOBULIN RATIO 0.7 (1.1-1.5); ALKALINE PHOSPHATASE 124 IU/L (46-116); ANION GAP 8 (8-16); ASPARTATE AMINO TRANSFERASE 11 U/L (10-37); BILIRUBIN,TOTAL 0.2 MG/DL (0.1-1.0); BLOOD UREA NITROGEN 33 MG/DL (7-18); BUN/CREATININE RATIO 29.5 (6.6-38.0); CALCIUM 9.4 MG/DL (8.5-10.1); CHLORIDE 103 MMOL/L (99-107); CREATININE 1.12 MG/DL (0.40-0.90); GLUCOSE 347 MG/DL (70-104); MAGNESIUM 2.1 MG/DL (1.5-2.4); POTASSIUM 4.3 MMOL/L (3.5-5.1); SODIUM 136 MMOL/L (135-145); TOTAL CARBON DIOXIDE 25.1 MMOL/L (24-32); TOTAL PROTEIN 7.3 G/DL (6.4-8.2); eGFR 48 ML/MIN
[2019-03-06 05:44] LABS: HEMATOCRIT 35.1 % (35.0-45.0); HEMOGLOBIN 11.5 g/dl (12.0-16.0); MEAN CORPUSCULAR HEMOGLOBIN 29.2 PG (27.0-31.0); MEAN CORPUSCULAR HGB CONC 32.8 g/dL (33.0-36.5); MEAN CORPUSCULAR VOLUME 88.8 FL (78-98); MEAN PLATELET VOLUME 10.7 FL (7.4-10.4); PLATELET COUNT 211 X10'3 (140-440); RED BLOOD COUNT 3.95 X10'6 (4.20-5.60); RED CELL DISTRIBUTION WIDTH 15.1 % (11.5-14.5); WHITE BLOOD COUNT 13.9 X10'3 (4.5-11.0)
--- NOTE | 2019-03-06 06:19 | NUR ---
Problems reprioritized. Patient report given, questions answered & plan of care reviewed with MAHSA Cruz.
[2019-03-06 07:00] VITALS: BP 129/67
[2019-03-06 07:45] LABS: NUCLEATED RED BLOOD CELLS 1 /100WBC (0-0); TOTAL CELLS COUNTED 100
[2019-03-06 07:47] LABS: PLATELET ESTIMATE NORMAL
[2019-03-06 07:48] LABS: LARGE PLATELETS FEW
[2019-03-06] MEDS: enoxaparin 40mg/0.4ml syringe SQ SCH (07:48)
[2019-03-06] MEDS: duloxetine 30mg CAPSULE.DR PO SCH (07:49)
[2019-03-06] MEDS: aspirin 325mg tablet, delayed-release (Ecotrin) PO SCH (07:49)
[2019-03-06] MEDS: clopidogrel 75mg tablet PO SCH (07:49)
[2019-03-06] MEDS: atorvastatin 20mg tablet PO SCH (07:49)
[2019-03-06] MEDS: pantoprazole 40mg Tablet.DR PO SCH (07:49)
[2019-03-06] MEDS: gabapentin 100mg capsule PO SCH (07:50)
[2019-03-06] MEDS: lactobacillus rhamnosus 10,000 MMU CELLS/CAPSULE PO SCH (07:50)
[2019-03-06] MEDS: calcium carbonate/vitamin D3 tablet PO SCH (07:50)
[2019-03-06] MEDS: predniSONE 20 mg tablet PO SCH (07:50)
[2019-03-06] MEDS: digoxin 125mcg (0.125mg) tablet PO SCH (07:58)
[2019-03-06] MEDS ORDERED: levoFLOXACIN 750MG TABLET PO SCH (08:00)
[2019-03-06] MEDS: K and/or MAG REPLACEMENT MC SCH (08:00)
[2019-03-06] MEDS: insulin Lispro (HumaLOG) vial - multi-dose SQ SCH (09:40)
[2019-03-06 11:00] VITALS: BP 122/91
[2019-03-06] MEDS ORDERED: PRED20TA PO (11:10)
[2019-03-06] MEDS ORDERED: LEVO500T2 PO (11:10)
[2019-03-07] MEDS ORDERED: fentaNYL 50MCG/HOUR patch.TD72 TD SCH (11:00)
== END 2019-03-06 12:50 | disposition home health service (06) | DRG 189 ==
LOC: ER 15:46 → SUR 3N 21:08 → CMPBEDREQ 03-05 19:59
PROVIDERS: ADMIT Family Medicine; ATTEND Family Medicine
PROC: B32T1ZZ Computerized Tomography (CT Scan) of Left Pulmonary Artery using Low Osmolar Contrast (ICD-10-PCS; principal; 2019-03-04)
PROC: B3201ZZ Computerized Tomography (CT Scan) of Thoracic Aorta using Low Osmolar Contrast (ICD-10-PCS; 2019-03-04)
PROC: B32S1ZZ Computerized Tomography (CT Scan) of Right Pulmonary Artery using Low Osmolar Contrast (ICD-10-PCS; 2019-03-04)
DX: J96.21 Acute and chronic respiratory failure with hypoxia (principal); J18.9 Pneumonia, unspecified organism; J44.1 Chronic obstructive pulmonary disease with (acute) exacerbation; J44.0 Chronic obstructive pulmonary disease with (acute) lower respiratory infection; E87.1 Hypo-osmolality and hyponatremia; E11.22 Type 2 diabetes mellitus with diabetic chronic kidney disease; N18.9 Chronic kidney disease, unspecified; E11.40 Type 2 diabetes mellitus with diabetic neuropathy, unspecified; G25.81 Restless legs syndrome; G47.30 Sleep apnea, unspecified; I11.0 Hypertensive heart disease with heart failure; I25.10 Atherosclerotic heart disease of native coronary artery without angina pectoris; I48.91 Unspecified atrial fibrillation; E11.21 Type 2 diabetes mellitus with diabetic nephropathy; I50.9 Heart failure, unspecified; K21.9 Gastro-esophageal reflux disease without esophagitis; M06.9 Rheumatoid arthritis, unspecified; M79.7 Fibromyalgia; G89.29 Other chronic pain; M32.9 Systemic lupus erythematosus, unspecified; E78.5 Hyperlipidemia, unspecified; M19.90 Unspecified osteoarthritis, unspecified site; M54.9 Dorsalgia, unspecified; Z79.4 Long term (current) use of insulin; Z87.891 Personal history of nicotine dependence; Z90.710 Acquired absence of both cervix and uterus; Z99.81 Dependence on supplemental oxygen; Z87.440 Personal history of urinary (tract) infections; Z88.5 Allergy status to narcotic agent; Z88.8 Allergy status to other drugs, medicaments and biological substances; Z90.49 Acquired absence of other specified parts of digestive tract; Z98.61 Coronary angioplasty status; Z80.3 Family history of malignant neoplasm of breast; Z82.61 Family history of arthritis; Z79.899 Other long term (current) drug therapy; I25.2 Old myocardial infarction
CPT/HCPCS: 36415; 71046; 71275; 80053; 80162; 81001; 82948; 83036; 83605; 83735; 83880; 84145; 84484; 85025; 85610; 85730; 87040; 87070; 92508; 92616; 93005; 94640; 94667; 94760; 96365; 99285; G0378; J1170; J1650; J1815; J1956; J2930; J7030; J7512; J7614; Q9967

== ENCOUNTER 2019-04-24 19:03 | Observation (INO) | payer MEDICARE, OTHER ==
[~2019-04-24] VITALS: Ht 172.7 cm; Wt 104.5 kg
[~2019-04-24 19:03] MED LIST changes: +ALBU8.5H8 IH; -ALBU8.5H8 INH; +ATOR40TA71 PO; -ATOR40TA72 PO; +BUDE10.2 INH; -BUDE10.22 INH; +DIGO125T78 PO; -HYDR-3973 PO; -HYDR200T84 PO; -OSEL30CA PO; +PRED20TA PO
[2019-04-24 20:05] LABS: CLARITY,URINE CLOUDY (Clear); COLOR,URINE YELLOW (Yellow); GLUCOSE, URINE 100 mg/dl (Neg); KETONES,URINE NEGATIVE (Neg); LEUKOCYTE ESTERASE ,URINE SMALL (Neg); NITRITES, URINE NEGATIVE (Neg); OCCULT BLOOD,URINE NEGATIVE (Neg); PROTEIN,URINE NEGATIVE (Neg); UA COLLECTION TYPE CLN CATCH MIDSTREAM; UROBILINOGEN,URINE 0.2 E.U/dL (0.2-1.0)
[2019-04-24 20:05] LABS: BASOPHILS # (AUTO) 0.1 X10'3 (0-0.2); BASOPHILS % (AUTO) 1.1 % (0-1); EOSINOPHILS # (AUTO) 0.3 X10'3 (0-0.9); EOSINOPHILS % (AUTO) 3.2 % (0-6); HEMATOCRIT 38.9 % (35.0-45.0); HEMOGLOBIN 12.8 g/dl (12.0-16.0); LYMPHOCYTES # (AUTO) 0.8 X10'3 (1.1-4.8); LYMPHOCYTES % (AUTO) 8.2 % (21-51); MEAN CORPUSCULAR HEMOGLOBIN 28.8 PG (27.0-31.0); MEAN CORPUSCULAR HGB CONC 32.8 g/dL (33.0-36.5); MEAN CORPUSCULAR VOLUME 87.9 FL (78-98); MEAN PLATELET VOLUME 10.1 FL (7.4-10.4); MONOCYTES # (AUTO) 0.6 X10'3 (0-0.9); NEUTROPHILS # (AUTO) 8.3 X10'3 (1.8-7.7); NEUTROPHILS % (AUTO) 81.5 % (42-75); PLATELET COUNT 168 X10'3 (140-440); RED BLOOD COUNT 4.42 X10'6 (4.20-5.60); RED CELL DISTRIBUTION WIDTH 15.5 % (11.5-14.5); WHITE BLOOD COUNT 10.2 X10'3 (4.5-11.0)
[2019-04-24 20:12] LABS: PARTIAL THROMBOPLASTIN TIME 33 SECONDS (22-32)
[2019-04-24 20:13] LABS: SQUAMOUS EPITHELIAL CELL,UR MANY /LPF (FEW)
[2019-04-24 20:15] LABS: BACTERIA,URINE FEW /HPF (Neg); RBC,URINE NONE SEEN /HPF (0-2)
[2019-04-24 20:18] LABS: ALANINE AMINOTRANSFERASE 47 U/L (12-78); ALBUMIN 3.2 G/DL (3.4-5.0); ALBUMIN/GLOBULIN RATIO 0.8 (1.1-1.5); ALKALINE PHOSPHATASE 164 IU/L (46-116); ANION GAP 8 (8-16); ASPARTATE AMINO TRANSFERASE 30 U/L (10-37); BILIRUBIN,TOTAL 0.3 MG/DL (0.1-1.0); BLOOD UREA NITROGEN 14 MG/DL (7-18); BUN/CREATININE RATIO 10.4 (6.6-38.0); CALCIUM 8.7 MG/DL (8.5-10.1); CHLORIDE 105 MMOL/L (99-107); CREATININE 1.34 MG/DL (0.40-0.90); GLUCOSE 275 MG/DL (70-104); SODIUM 140 MMOL/L (135-145); TOTAL CARBON DIOXIDE 26.7 MMOL/L (24-32); TOTAL PROTEIN 7.4 G/DL (6.4-8.2); eGFR 39 ML/MIN
[2019-04-24] MEDS ORDERED: aspirin 81mg tab.chew PO ONE (20:55)
[2019-04-24] MEDS ORDERED: cephalexin 250mg capsule PO ONE (20:55)
[2019-04-24] MEDS ORDERED: dextrose 50%-water 50ml dispensing syringe IV PRN ×2 (22:25)
[2019-04-24] MEDS ORDERED: mag hydrox/Alum hydrox/simeth 30ml oral suspension PO PRN (22:25)
[2019-04-24] MEDS ORDERED: MESSAGE TO PHARMACY PO ONE (22:25)
[2019-04-24] MEDS ORDERED: dextrose ORAL solution 15 GM/59 ML bottle PO PRN ×2 (22:25)
[2019-04-24] MEDS ORDERED: ondansetron/PF 4mg/2ml inj IV PRN (22:25)
[2019-04-24] MEDS ORDERED: magnesium hydroxide 30ml (MOM) UD suspension PO PRN (22:25)
[2019-04-24] MEDS ORDERED: glucagon, human recombinant 1mg kit SUBCUT PRN (22:25)
[2019-04-24] MEDS ORDERED: acetaminophen 325mg tablet PO PRN ×2 (22:25)
[2019-04-24] MEDS ORDERED: albuterol 2.5 MG/3 ML nebule NEB PRN ×2 (22:25→23:10)
[2019-04-24] MEDS ORDERED: VALS80TA32 PO (22:41)
[2019-04-24] MEDS ORDERED: POTA20TA19 PO (22:48)
[2019-04-24] MEDS ORDERED: BECL7.3A INH (22:48)
[2019-04-24] MEDS ORDERED: INSU100C10 SQ ×2 (23:03)
[2019-04-24] MEDS ORDERED: atorvastatin 20mg tablet PO ONE (23:45)
[2019-04-24] MEDS ORDERED: pramipexole 1mg tablet PO ONE (23:45)
[2019-04-24] MEDS ORDERED: QUEtiapine 25mg tablet PO ONE (23:45)
[2019-04-24] MEDS ORDERED: gabapentin 100mg capsule PO ONE (23:45)
[2019-04-24] MEDS ORDERED: furosemide 40mg tablet PO ONE (23:45)
[2019-04-24] MEDS ORDERED: duloxetine 30mg CAPSULE.DR PO ONE (23:45)
[2019-04-25] VITALS: BP 133/79
--- NOTE | 2019-04-25 | NUR ---
pt in 4007 from ER. Pt ambulated to the bed. vss. received report from bing Bhardwaj prior to arrival.
[2019-04-25] MEDS: insulin glargine (Lantus) pen - multi-dose SQ SCH ×2 (00:43→22:15)
[2019-04-25] MEDS: HYDROcodone/acetaminophen 10/325mg tab PO PRN ×3 (00:50→22:01)
[2019-04-25 02:11] LABS: ALBUMIN 2.9 G/DL (3.4-5.0); ANION GAP 7 (8-16); BLOOD UREA NITROGEN 17 MG/DL (7-18); BUN/CREATININE RATIO 13.3 (6.6-38.0); CALCIUM 8.5 MG/DL (8.5-10.1); CHLORIDE 105 MMOL/L (99-107); CREATININE 1.28 MG/DL (0.40-0.90); GLUCOSE 312 MG/DL (70-104); POTASSIUM 3.8 MMOL/L (3.5-5.1); SODIUM 140 MMOL/L (135-145); TOTAL CARBON DIOXIDE 28.1 MMOL/L (24-32); eGFR 41 ML/MIN
[2019-04-25 06:00] VITALS: BP 115/57
--- NOTE | 2019-04-25 06:00 | NUR ---
Patient in room [facility] 4007. I have received report from and had the opportunity to ask questions and assume patient care MAHSA Montejo.
--- NOTE | 2019-04-25 06:46 | NUR ---
Problems reprioritized. Patient report given, questions answered & plan of care reviewed with bing Buckley.
[2019-04-25] MEDS: budesonide 0.5mg/2ml UD nebule IH SCH (07:09)
[2019-04-25 07:34] LABS: BASOPHILS % (AUTO) 0.5 % (0-1); EOSINOPHILS # (AUTO) 0.4 X10'3 (0-0.9); EOSINOPHILS % (AUTO) 5.5 % (0-6); HEMATOCRIT 38.1 % (35.0-45.0); HEMOGLOBIN 12.3 g/dl (12.0-16.0); LYMPHOCYTES # (AUTO) 1.2 X10'3 (1.1-4.8); LYMPHOCYTES % (AUTO) 17.9 % (21-51); MEAN CORPUSCULAR HEMOGLOBIN 28.3 PG (27.0-31.0); MEAN CORPUSCULAR HGB CONC 32.2 g/dL (33.0-36.5); MEAN PLATELET VOLUME 10.6 FL (7.4-10.4); MONOCYTES # (AUTO) 0.6 X10'3 (0-0.9); MONOCYTES % (AUTO) 8.8 % (2-12); NEUTROPHILS # (AUTO) 4.6 X10'3 (1.8-7.7); NEUTROPHILS % (AUTO) 67.3 % (42-75); PLATELET COUNT 170 X10'3 (140-440); RED BLOOD COUNT 4.33 X10'6 (4.20-5.60); RED CELL DISTRIBUTION WIDTH 15.4 % (11.5-14.5); WHITE BLOOD COUNT 6.9 X10'3 (4.5-11.0)
[2019-04-25] MEDS ORDERED: gabapentin 100mg capsule PO SCH (08:00)
[2019-04-25] MEDS ORDERED: furosemide 40mg tablet PO SCH (08:00)
[2019-04-25] MEDS ORDERED: ergocalciferol (Vitamin D) 50,000 unit capsule PO SCH (08:00)
[2019-04-25] MEDS: potassium Cl 20 mEq SR tablet PO SCH (08:00)
[2019-04-25] MEDS ORDERED: enoxaparin 40mg/0.4ml syringe SUBCUT SCH (08:00)
[2019-04-25] MEDS: atorvastatin 20mg tablet PO SCH ×2 (08:04→19:44)
[2019-04-25] MEDS: pantoprazole 40mg Tablet.DR PO SCH ×2 (08:05→17:44)
[2019-04-25] MEDS: digoxin 125mcg (0.125mg) tablet PO SCH (08:05)
[2019-04-25] MEDS: linagliptin 5mg tablet PO SCH (08:05)
[2019-04-25] MEDS: losartan 50mg tablet PO SCH (08:05)
[2019-04-25] MEDS: clopidogrel 75mg tablet PO SCH (08:06)
[2019-04-25] MEDS: aspirin 325mg tablet, delayed-release (Ecotrin) PO SCH (08:06)
[2019-04-25] MEDS: CefTRIAXone/D5W-Rocephin 1gm 50 ML IV SCH (08:09)
[2019-04-25] MEDS: calcium carbonate/vitamin D3 tablet PO SCH ×2 (08:13→19:43)
[2019-04-25] MEDS: insulin Lispro (HumaLOG) vial - multi-dose SQ SCH ×4 (09:47→22:13)
[2019-04-25] MEDS: fentaNYL 50MCG/HOUR patch.TD72 TD SCH (10:00)
[2019-04-25 10:38] LABS: LARGE PLATELETS FEW; PLATELET ESTIMATE NORMAL
[2019-04-25] MEDS: furosemide 20MG tablet PO SCH ×2 (13:00→22:01)
--- NOTE | 2019-04-25 17:31 | NUR ---
DM consult, A1c is 10.4, patient given written DM education handout with verbal review and referral to outpatient DM education class on Tuesday. Patient reports she sees an MD for her DM, recently had a change in her medication dose, and has been to a DM education class here, encouraged her to attend again as she is not confident in her ability to dose the right amount of insulin. Patient admitted with c/o difficulty breathing, UTI per MD note. Recommend: 1. continue carb controlled diet 2. wt per rx Addendum: 04/25/19 at [address] Amended: Links added.
[2019-04-25 18:30] VITALS: BP 135/77
--- NOTE | 2019-04-25 18:46 | NUR ---
Patient in room [facility] 4007. I have received report from MAHSA Buckley and had the opportunity to ask questions and assume patient care. Addendum: 04/25/19 at 1846 by Aniya Simmons RN Amended: Links added.
[2019-04-25] MEDS: lactobacillus rhamnosus 10,000 MMU CELLS/CAPSULE PO SCH (19:44)
[2019-04-25] MEDS ORDERED: insulin glargine (Lantus) pen - multi-dose SQ SCH (21:00)
[2019-04-25] MEDS ORDERED: QUEtiapine 25mg tablet PO SCH (21:00)
[2019-04-25] MEDS ORDERED: duloxetine 30mg CAPSULE.DR PO SCH (21:00)
[2019-04-25] MEDS ORDERED: INSULIN GLARGINE HUM REC ANLOG 46 UNIT SQ SCH (21:00)
[2019-04-25] MEDS ORDERED: pramipexole 1mg tablet PO SCH (21:00)
[2019-04-25 22:00] VITALS: BP_SYST 103; BP_SYST 133; BP_DIAS 69; BP_DIAS 84
--- NOTE | 2019-04-25 22:00 | NUR ---
pt was concerned, states she did not get any medication or abx through iv, and states same blood is in tubing all day. iv flushed and patent. abx were scanned this am, explained to pt. she was drowsy this morning according to nurse and md. empty abx hanging on iv pole. pt verbalizes understanding, and is calm and pleasant. Addendum: 04/25/19 at 2340 by Aniya Simmons RN Amended: Links added.
[2019-04-26] MEDS: HYDROcodone/acetaminophen 10/325mg tab PO PRN (03:02)
[2019-04-26] MEDS: fentaNYL 50MCG/HOUR patch.TD72 TD SCH (03:22)
[2019-04-26 06:10] VITALS: BP 138/89
--- NOTE | 2019-04-26 06:24 | NUR ---
Problems reprioritized. Patient report given, questions answered & plan of care reviewed with RN. Addendum: 04/26/19 at 0625 by Aniya Simmons RN Amended: Links added.
--- NOTE | 2019-04-26 06:26 | NUR ---
Patient in room [facility]TH[facility] 4007. I have received report from Darlyn Camilo RN and had the opportunity to ask questions and assume patient care.
[2019-04-26 06:30] LABS: ALBUMIN 2.8 G/DL (3.4-5.0); ANION GAP 8 (8-16); BASOPHILS % (AUTO) 0.5 % (0-1); BLOOD UREA NITROGEN 15 MG/DL (7-18); BUN/CREATININE RATIO 14.3 (6.6-38.0); CALCIUM 8.2 MG/DL (8.5-10.1); CHLORIDE 105 MMOL/L (99-107); CREATININE 1.05 MG/DL (0.40-0.90); EOSINOPHILS # (AUTO) 0.3 X10'3 (0-0.9); EOSINOPHILS % (AUTO) 5.4 % (0-6); GLUCOSE 191 MG/DL (70-104); HEMATOCRIT 35.6 % (35.0-45.0); HEMOGLOBIN 11.7 g/dl (12.0-16.0); LYMPHOCYTES # (AUTO) 0.9 X10'3 (1.1-4.8); LYMPHOCYTES % (AUTO) 14.4 % (21-51); MEAN CORPUSCULAR VOLUME 87.9 FL (78-98); MEAN PLATELET VOLUME 10.6 FL (7.4-10.4); MONOCYTES # (AUTO) 0.5 X10'3 (0-0.9); MONOCYTES % (AUTO) 8.8 % (2-12); NEUTROPHILS # (AUTO) 4.4 X10'3 (1.8-7.7); NEUTROPHILS % (AUTO) 70.9 % (42-75); PLATELET COUNT 148 X10'3 (140-440); POTASSIUM 3.5 MMOL/L (3.5-5.1); RED BLOOD COUNT 4.05 X10'6 (4.20-5.60); RED CELL DISTRIBUTION WIDTH 15.5 % (11.5-14.5); SODIUM 142 MMOL/L (135-145); TOTAL CARBON DIOXIDE 29.4 MMOL/L (24-32); WHITE BLOOD COUNT 6.2 X10'3 (4.5-11.0); eGFR 51 ML/MIN
[2019-04-26] MEDS: atorvastatin 20mg tablet PO SCH (07:41)
[2019-04-26] MEDS: CefTRIAXone/D5W-Rocephin 1gm 50 ML IV SCH (07:41)
[2019-04-26] MEDS: clopidogrel 75mg tablet PO SCH (07:41)
[2019-04-26] MEDS: aspirin 325mg tablet, delayed-release (Ecotrin) PO SCH (07:41)
[2019-04-26] MEDS: pantoprazole 40mg Tablet.DR PO SCH (07:41)
[2019-04-26] MEDS: linagliptin 5mg tablet PO SCH (07:41)
[2019-04-26] MEDS: lactobacillus rhamnosus 10,000 MMU CELLS/CAPSULE PO SCH (07:41)
[2019-04-26] MEDS: calcium carbonate/vitamin D3 tablet PO SCH (07:41)
[2019-04-26] MEDS: furosemide 20MG tablet PO SCH (07:42)
[2019-04-26] MEDS ORDERED: enoxaparin 30mg/0.3ml syringe SUBCUT SCH (07:42)
[2019-04-26] MEDS: digoxin 125mcg (0.125mg) tablet PO SCH (07:44)
[2019-04-26] MEDS: losartan 50mg tablet PO SCH (07:45)
[2019-04-26] MEDS: potassium Cl 20 mEq SR tablet PO SCH (08:00)
[2019-04-26] MEDS: budesonide 0.5mg/2ml UD nebule IH SCH (08:49)
[2019-04-26] MEDS: insulin Lispro (HumaLOG) vial - multi-dose SQ SCH (09:36)
[2019-04-26 10:00] VITALS: BP 125/71
[2019-04-26] MEDS ORDERED: pneumococcal 23-VAL P-sac vacc 25 mcg/0.5ml vial IMVAC ONE (10:00)
[2019-04-26] MEDS ORDERED: CEFD300C3 PO (10:31)
--- NOTE | 2019-04-26 12:05 | NUR ---
Patient discharged with . They were taught about Drs' medication recommendation changes and to citrus picker antibiotic from [facility].
== END 2019-04-26 12:05 | disposition home or self-care (01) ==
LOC: ER 19:04 → ORTHO 4S 23:22 → CMPBEDREQ 04-25 00:17
PROVIDERS: ADMIT Hospitalist; ATTEND Family Medicine
DX: N39.0 Urinary tract infection, site not specified (principal); R07.89 Other chest pain; E11.40 Type 2 diabetes mellitus with diabetic neuropathy, unspecified; K21.9 Gastro-esophageal reflux disease without esophagitis; J44.9 Chronic obstructive pulmonary disease, unspecified; G47.33 Obstructive sleep apnea (adult) (pediatric); Z87.891 Personal history of nicotine dependence; Z79.82 Long term (current) use of aspirin; Z88.1 Allergy status to other antibiotic agents; I13.0 Hypertensive heart and chronic kidney disease with heart failure and stage 1 through stage 4 chronic kidney disease, or unspecified chronic kidney disease; I50.9 Heart failure, unspecified; N18.9 Chronic kidney disease, unspecified; Z99.81 Dependence on supplemental oxygen; M06.9 Rheumatoid arthritis, unspecified; M79.7 Fibromyalgia; Z90.710 Acquired absence of both cervix and uterus; G89.29 Other chronic pain; I25.119 Atherosclerotic heart disease of native coronary artery with unspecified angina pectoris; E11.22 Type 2 diabetes mellitus with diabetic chronic kidney disease
CPT/HCPCS: 36415; 71045; 80048; 80053; 80162; 81001; 82948; 84439; 84443; 84484; 85025; 85610; 85730; 87081; 90471; 90732; 93005; 93306; 94640; 94760; 96365; 96366; 96372; 97110; 97116; 97161; 97530; 99284; G0378; J0696; J1650; J1815; J7626

== ENCOUNTER 2019-04-29 14:26 | Emergency (ER) | payer MEDICARE, OTHER ==
[~2019-04-29] VITALS: Ht 172.7 cm; Wt 100.0 kg
[~2019-04-29 14:26] MED LIST changes: +BECL7.3A INH; +CEFD300C3 PO; -DULO60CA45 PO; -GABA-530 PO; +INSU100C10 SQ; -LACT1CAP26 PO; -POTA-82 PO; +POTA20TA19 PO; -PRED20TA PO; +VALS80TA32 PO
--- NOTE | 2019-04-29 15:41 | NUR ---
Michael sawyer in [facility] - 04/29/19 at 1602 by OWEN PT TOOK HOME MEDS [place] BY DR. SOUTH, TOOK GABAPENTIN, METOPROLOL, ASA 81 MG, LOSARTAN, LASIX
[2019-04-29 15:53] LABS: URINE AMPHETAMINE SCREEN NEGATIVE (Neg); URINE BARBITUATE SCREEN NEGATIVE (Neg); URINE BENZODIAZEPINES SCREEN NEGATIVE (Neg); URINE CANNABINOID SCREEN NEGATIVE (Neg); URINE COCAINE SCREEN NEGATIVE (Neg); URINE METHADONE SCREEN NEGATIVE (Neg); URINE OPIATE SCREEN POSITIVE (Neg); URINE PHENCYCLIDINE SCREEN NEGATIVE (Neg)
[2019-04-29 15:54] LABS: EOSINOPHILS # (AUTO) 0.1 X10'3 (0-0.9); MEAN CORPUSCULAR HEMOGLOBIN 28.5 PG (27.0-31.0); NEUTROPHILS # (AUTO) 4.7 X10'3 (1.8-7.7)
[2019-04-29 15:56] LABS: BASOPHILS % (AUTO) 0.2 % (0-1); EOSINOPHILS % (AUTO) 1.7 % (0-6); HEMATOCRIT 40.7 % (35.0-45.0); HEMOGLOBIN 13.2 g/dl (12.0-16.0); LYMPHOCYTES # (AUTO) 0.4 X10'3 (1.1-4.8); LYMPHOCYTES % (AUTO) 7.6 % (21-51); MEAN CORPUSCULAR HGB CONC 32.4 g/dL (33.0-36.5); MEAN CORPUSCULAR VOLUME 87.9 FL (78-98); MEAN PLATELET VOLUME 10.1 FL (7.4-10.4); MONOCYTES # (AUTO) 0.4 X10'3 (0-0.9); MONOCYTES % (AUTO) 7.7 % (2-12); NEUTROPHILS % (AUTO) 82.8 % (42-75); PLATELET COUNT 155 X10'3 (140-440); RED BLOOD COUNT 4.63 X10'6 (4.20-5.60); RED CELL DISTRIBUTION WIDTH 15.9 % (11.5-14.5); WHITE BLOOD COUNT 5.7 X10'3 (4.5-11.0)
[2019-04-29 16:02] LABS: ALANINE AMINOTRANSFERASE 67 U/L (12-78); ALBUMIN/GLOBULIN RATIO 0.7 (1.1-1.5); ALKALINE PHOSPHATASE 158 IU/L (46-116); ANION GAP 7 (8-16); ASPARTATE AMINO TRANSFERASE 57 U/L (10-37); BILIRUBIN,TOTAL 0.3 MG/DL (0.1-1.0); BLOOD UREA NITROGEN 12 MG/DL (7-18); BUN/CREATININE RATIO 10.6 (6.6-38.0); CALCIUM 8.1 MG/DL (8.5-10.1); CHLORIDE 103 MMOL/L (99-107); CREATININE 1.13 MG/DL (0.40-0.90); GLUCOSE 161 MG/DL (70-104); POTASSIUM 4.5 MMOL/L (3.5-5.1); SODIUM 138 MMOL/L (135-145); TOTAL CARBON DIOXIDE 27.8 MMOL/L (24-32); TOTAL PROTEIN 7.2 G/DL (6.4-8.2); eGFR 47 ML/MIN
--- NOTE | 2019-04-29 16:45 | NUR ---
Made aware by Iwona that Pt will now be placed on 1798, stated she can't go home because she will kill herself. Pt to be changed to green scrubs and med rec completed.
[2019-04-29 17:05] LABS: ETHANOL < 0.010 GM/DL (0.0-0.010)
[2019-04-29 17:19] LABS: CLARITY,URINE CLEAR (Clear); COLOR,URINE YELLOW (Yellow); GLUCOSE, URINE NEGATIVE (Neg); KETONES,URINE NEGATIVE (Neg); LEUKOCYTE ESTERASE ,URINE NEGATIVE (Neg); NITRITES, URINE NEGATIVE (Neg); OCCULT BLOOD,URINE NEGATIVE (Neg); PH,URINE 5.5 (4.8-8.0); PROTEIN,URINE NEGATIVE (Neg); UROBILINOGEN,URINE 0.2 E.U/dL (0.2-1.0)
[2019-04-29 17:22] LABS: UA COLLECTION TYPE STRAIGHT CATH
[2019-04-29] MEDS ORDERED: albuterol 2.5 MG/3 ML nebule NEB PRN (17:35)
[2019-04-29] MEDS: budesonide 0.5mg/2ml UD nebule IH SCH (19:03)
[2019-04-29] MEDS: albuterol 2.5 MG/3 ML nebule NEB SCH (19:03)
--- NOTE | 2019-04-29 19:05 | NUR ---
RT AT BEDSIDE
[2019-04-29] MEDS: furosemide 20MG tablet PO SCH (20:21)
[2019-04-29] MEDS: metFORMIN 500mg tablet PO SCH (20:21)
[2019-04-29] MEDS: calcium carbonate/vitamin D3 tablet PO SCH (20:21)
[2019-04-29] MEDS: atorvastatin 20mg tablet PO SCH (20:22)
[2019-04-29] MEDS: pantoprazole 40mg Tablet.DR PO SCH (20:22)
[2019-04-29] MEDS: pramipexole 1mg tablet PO SCH (20:29)
[2019-04-29] MEDS: QUEtiapine 25mg tablet PO SCH (20:29)
[2019-04-29] MEDS: insulin glargine (Lantus) pen - multi-dose SQ SCH (20:31)
[2019-04-29] MEDS ORDERED: HYDROcodone/acetaminophen 10/325mg tab PO ONE (22:25)
[2019-04-29] MEDS ORDERED: ondansetron 4mg rapidly disintigrating tab PO ONE (22:25)
--- NOTE | 2019-04-29 22:29 | NUR ---
Packet faxed to [facility]. Confirmed receipt of packet with Gene @ [facility] office.
--- NOTE | 2019-04-29 22:30 | NUR ---
Pt transferred from ER 9 to Overflow 23 via wheel with the assistance of autocad technician. Pt orientated to unit, fresh water given.
--- NOTE | 2019-04-29 22:32 | NUR ---
Patient states that her parents were satanists and that her family was part of a cult which is the root of her childhood trauma that is causing her to recently be depressed and suicidal. She also states that she has a, "crummy marriage." She states that she does not ever want to return home and that home is the source of her, "sickness." Every time she goes home she gets, "sick" and wants to come to the hospital. Patient denies any suicide attempts in the past. Patient complains of low back pain, 04/28. Spoke to Dr. Sadler who orders norco.
--- NOTE | 2019-04-29 22:58 | NUR ---
Patient removed O2 and ambulated independently to restroom with a steady gait.
--- NOTE | 2019-04-30 00:45 | NUR ---
Patient sleeping on left side with even unlabored breathing.
--- NOTE | 2019-04-30 01:32 | NUR ---
Patient continues to sleep.
--- NOTE | 2019-04-30 03:30 | NUR ---
Patient woke up and complains of nausea. Order for zofran requested from Dr. Sadler.
[2019-04-30] MEDS: ondansetron 4mg rapidly disintigrating tab PO PRN (03:41)
[2019-04-30] MEDS: albuterol 2.5 MG/3 ML nebule NEB SCH ×4 (07:00→20:03)
--- NOTE | 2019-04-30 07:00 | NUR ---
Pt sleeping. On O2 @2L.
[2019-04-30] MEDS: digoxin 125mcg (0.125mg) tablet PO SCH (07:09)
[2019-04-30] MEDS: pantoprazole 40mg Tablet.DR PO SCH ×2 (08:44→20:51)
[2019-04-30] MEDS: aspirin 325mg tablet, delayed-release (Ecotrin) PO SCH (08:44)
[2019-04-30] MEDS: potassium Cl 20 mEq SR tablet PO SCH ×3 (08:44→17:33)
[2019-04-30] MEDS: metFORMIN 500mg tablet PO SCH ×2 (08:44→20:51)
[2019-04-30] MEDS: atorvastatin 20mg tablet PO SCH ×2 (08:44→20:52)
[2019-04-30] MEDS: losartan 50mg tablet PO SCH (08:44)
[2019-04-30] MEDS: clopidogrel 75mg tablet PO SCH (08:44)
[2019-04-30] MEDS: furosemide 20MG tablet PO SCH ×3 (08:45→20:52)
[2019-04-30] MEDS: linagliptin 5mg tablet PO SCH (08:45)
[2019-04-30] MEDS: calcium carbonate/vitamin D3 tablet PO SCH ×2 (08:45→20:00)
[2019-04-30] MEDS: insulin Lispro (HumaLOG) vial - multi-dose SQ SCH ×3 (08:46→17:56)
[2019-04-30] MEDS: budesonide 0.5mg/2ml UD nebule IH SCH ×2 (09:00→20:03)
--- NOTE | 2019-04-30 09:00 | NUR ---
Took all AM meds without difficulty.
[2019-04-30] MEDS: fentaNYL 50MCG/HOUR patch.TD72 TD SCH (09:13)
--- NOTE | 2019-04-30 11:00 | NUR ---
Speaking with on phone.
--- NOTE | 2019-04-30 13:00 | NUR ---
Visiting with at bedside.
--- NOTE | 2019-04-30 15:00 | NUR ---
Daughter at bedside.
--- NOTE | 2019-04-30 17:00 | NUR ---
Pt now back to sleep.
--- NOTE | 2019-04-30 19:33 | NUR ---
Patient was awoken from sleep. Labs being drawn.
--- NOTE | 2019-04-30 19:41 | NUR ---
This patient is awake and well oriented. Mid fowlers in bed. Patient denies depression or suicidal ideation at this time. Patient states that a recent change in her medications, she believes this may have resulted in her S/I. This patient is in view from the nursing station. O2 at 2 LPM for her COPD. Patient denies any SOB. This patient is cooperative with staff and medication compliant.
[2019-04-30] MEDS: insulin glargine (Lantus) pen - multi-dose SQ SCH (20:47)
[2019-04-30] MEDS: QUEtiapine 25mg tablet PO SCH (20:51)
[2019-04-30] MEDS: pramipexole 1mg tablet PO SCH (20:52)
[2019-04-30] MEDS ORDERED: HYDROcodone/acetaminophen 10/325mg tab PO ONE (21:05)
[2019-05-01] MEDS: digoxin 125mcg (0.125mg) tablet PO SCH (07:00)
--- NOTE | 2019-05-01 07:00 | NUR ---
Pt remains sleeping calmly in bed without distress.
[2019-05-01] MEDS: albuterol 2.5 MG/3 ML nebule NEB SCH ×4 (08:39→19:32)
[2019-05-01] MEDS: budesonide 0.5mg/2ml UD nebule IH SCH ×2 (08:39→19:32)
[2019-05-01] MEDS: insulin Lispro (HumaLOG) vial - multi-dose SQ SCH ×3 (08:52→18:28)
[2019-05-01] MEDS: metFORMIN 500mg tablet PO SCH ×2 (08:55→20:26)
[2019-05-01] MEDS: potassium Cl 20 mEq SR tablet PO SCH ×3 (08:55→18:30)
[2019-05-01] MEDS: losartan 50mg tablet PO SCH (08:55)
[2019-05-01] MEDS: aspirin 325mg tablet, delayed-release (Ecotrin) PO SCH (08:56)
[2019-05-01] MEDS: calcium carbonate/vitamin D3 tablet PO SCH ×2 (08:56→20:39)
[2019-05-01] MEDS: clopidogrel 75mg tablet PO SCH (08:56)
[2019-05-01] MEDS: pantoprazole 40mg Tablet.DR PO SCH ×2 (08:56→20:26)
[2019-05-01] MEDS: furosemide 20MG tablet PO SCH ×3 (08:56→20:26)
[2019-05-01] MEDS: atorvastatin 20mg tablet PO SCH ×2 (08:56→20:25)
[2019-05-01] MEDS: linagliptin 5mg tablet PO SCH (08:57)
--- NOTE | 2019-05-01 09:00 | NUR ---
Pt has order for 20 units humalog. Dose seemed large for an am blood sugar of 153. Called to verify home order, which he endorsed as correct. Reviewed with Dr. Campbell and he gave to go ahead to medicate with the 20 units.
--- NOTE | 2019-05-01 09:59 | NUR ---
Recheck of blood sugar now is 217, so the 20 units looks like the correct dose.
--- NOTE | 2019-05-01 11:00 | NUR ---
Pt c/o dizziness and B/P was checked and it was low: 84/39. Reviewed with Dr. Echols who instructed just to monitor.
--- NOTE | 2019-05-01 13:00 | NUR ---
Pt visiting with her and claims that she continues to be very depressed and tearful at times.
--- NOTE | 2019-05-01 15:00 | NUR ---
Pt resting quietly in bed without complaints.
--- NOTE | 2019-05-01 17:00 | NUR ---
Pt sitting up in bed without complaints.
--- NOTE | 2019-05-01 18:30 | NUR ---
Pt is sitting up in bed with nasal cannula 2L continuos conversing with her and eldest daughter. She uses the reastroom once. No signs or symptoms of distress are observed or reported.
[2019-05-01] MEDS: QUEtiapine 25mg tablet PO SCH (20:26)
[2019-05-01] MEDS: pramipexole 1mg tablet PO SCH (20:26)
[2019-05-01] MEDS: insulin glargine (Lantus) pen - multi-dose SQ SCH (20:30)
--- NOTE | 2019-05-01 21:00 | NUR ---
Pt's HS accuchech was 165, she recieved her scheduled dose of 46 units Lantus. Pt is medication compliant and cooperative. Pt's eldest daughter states that Selam had been on cymbalta 60 mg HS, and gabapentin 100 mg TID, but was told "about a week ago" by a doctor to stop the medications. Daughter is adimant that these medications should not have been stopped and thinks that is why her mother ended up in the hospital again.
--- NOTE | 2019-05-01 21:37 | NUR ---
PT requests norco for foot pain, this nurse consults Dr. Gongora, who approved 400 mg PO motrin because pt has a 72 hr fentanyl patch on. Pt was informer she could get feliz but not norco and she said, "okay but you'll be paying for that tonight." PT refused the motrin.
[2019-05-01] MEDS ORDERED: Melatonin 3mg tablet PO SCH ×2 (22:45→22:47)
[2019-05-01] MEDS ORDERED: Melatonin 3mg tablet PO ONE (22:47)
--- NOTE | 2019-05-01 23:00 | NUR ---
Pt requested "something to help me sleep, I need something, I need to get out of here." Machine Loader explained the 5150 hold to her, and she responds, "I don't want to kill myself I just talk like that, I didn't actually mean it." Machine Loader gets an order for 9mg of melatonin which was given at 22:58. Pt requests to "freshen up " in the bathroom, given a wash cloth, and soap, pt rinsed her hair off and changed scrubs.
--- NOTE | 2019-05-02 01:00 | NUR ---
%Pt resting on R side with 02 at 2 L via nasal cannula. PT took off her CPAP machine andc refused to use it. "I just want the nasal cannula I am sick of this thing." Pt's 02 monitored, 95%.
--- NOTE | 2019-05-02 03:00 | NUR ---
Pt used the restroom twice in the last hour. Pt sitting up on the side of the bed and says, "I feel like I can't breathe." 02 checked 96%. She still has the 2L via nasal cannula on, telegraphic typewriter installer encouraged her to use her CPAP but she refuses. Writere elevated the HOB.
--- NOTE | 2019-05-02 06:30 | NUR ---
Patient observed resting comfortably in bed, no distress observed.
[2019-05-02] MEDS: metFORMIN 500mg tablet PO SCH ×2 (07:42→20:31)
[2019-05-02] MEDS: pantoprazole 40mg Tablet.DR PO SCH ×2 (07:42→20:30)
[2019-05-02] MEDS: atorvastatin 20mg tablet PO SCH ×2 (07:42→20:30)
[2019-05-02] MEDS: furosemide 20MG tablet PO SCH ×3 (07:42→20:30)
[2019-05-02] MEDS: linagliptin 5mg tablet PO SCH (07:43)
[2019-05-02] MEDS: digoxin 125mcg (0.125mg) tablet PO SCH (07:43)
[2019-05-02] MEDS: potassium Cl 20 mEq SR tablet PO SCH ×3 (07:44→17:54)
[2019-05-02] MEDS: albuterol 2.5 MG/3 ML nebule NEB SCH ×4 (07:46→19:34)
[2019-05-02] MEDS: losartan 50mg tablet PO SCH (08:00)
[2019-05-02] MEDS: budesonide 0.5mg/2ml UD nebule IH SCH ×2 (09:00→19:35)
[2019-05-02] MEDS: insulin Lispro (HumaLOG) vial - multi-dose SQ SCH ×3 (09:01→18:58)
[2019-05-02] MEDS: clopidogrel 75mg tablet PO SCH (09:01)
[2019-05-02] MEDS: aspirin 325mg tablet, delayed-release (Ecotrin) PO SCH (09:01)
[2019-05-02] MEDS: calcium carbonate/vitamin D3 tablet PO SCH ×2 (09:01→20:30)
--- NOTE | 2019-05-02 10:30 | NUR ---
Patient states that she is no longer feeling suicidal. She states that she was sleeping all day so the doctor told her to stop taking Cymbalta (60mg hs) and Gabapentin (100mg TID). She reports that is when she started feeling suicidal.
--- NOTE | 2019-05-02 14:00 | NUR ---
Patient visits with her . They are observed praying together. They are friendly and conversational with each other. concurs with patients earlier statement that her increase in depression and S/I began after abruptly stopping her medications.
[2019-05-02] MEDS: ondansetron 4mg rapidly disintigrating tab PO PRN (18:02)
--- NOTE | 2019-05-02 18:40 | NUR ---
pt just finished her dinner, she is talking quietly with her , no s/s of distress obsereved
--- NOTE | 2019-05-02 19:37 | NUR ---
pt rcving breathing treatment, , still at bedside, no s/s of distress observed
[2019-05-02] MEDS: insulin glargine (Lantus) pen - multi-dose SQ SCH (20:28)
[2019-05-02] MEDS: pramipexole 1mg tablet PO SCH (20:30)
[2019-05-02] MEDS: QUEtiapine 25mg tablet PO SCH (20:31)
--- NOTE | 2019-05-02 20:38 | NUR ---
pt accepted breathing treatment and medications well, no s/s of distress observed
[2019-05-02] MEDS ORDERED: polyethylene glycol 3350 17gm powd pack PO SCH (21:00)
[2019-05-02] MEDS ORDERED: HYDROcodone/acetaminophen 5mg/325mg tablet PO ONE ×2 (21:25→23:25)
--- NOTE | 2019-05-02 21:40 | NUR ---
pt requested and was given pain medication for her legs and feet, she is now laying down, no s/s of distress observed
--- NOTE | 2019-05-02 22:35 | NUR ---
pt is laying on her left side, eyes closed, no s/s of distress abserved, regular breathing present
--- NOTE | 2019-05-02 23:22 | NUR ---
pt came up to the nurse's station and requested more pain medication, says that she take 10 325 norco at home and is still in pain, I called over to ER req, higher dose norco, Dr Bolden approved
--- NOTE | 2019-05-02 23:35 | NUR ---
pt given 5 325 norco for continued feet and leg pain. she is reminded to drink water and move around as much as possible in the am to encourage bm as she has not had one since 04/29, she refused further intervention on bm at this time, she is calm, no s/s of distress observed
--- NOTE | 2019-05-03 00:35 | NUR ---
pt is supine in bed, supine, appears to be asleep , on 2L nc regular, spontaneous breathing present, no s/s of distress observed
--- NOTE | 2019-05-03 01:35 | NUR ---
pt is asleep on her right side, unlabored breathing present
--- NOTE | 2019-05-03 02:30 | NUR ---
Patient is sleeping supine with even unlabored breathing.
--- NOTE | 2019-05-03 03:12 | NUR ---
pt is sleeping unlabored breathing no s/s of distress observed
--- NOTE | 2019-05-03 04:21 | NUR ---
pt is asleep laying on her right side, unlabored breathing
--- NOTE | 2019-05-03 05:27 | NUR ---
pt is quietly snoring, no s/s of distress observed
--- NOTE | 2019-05-03 06:01 | NUR ---
pt cooperative with vitals being taken, went right back to sleep after talking briefly with tech
--- NOTE | 2019-05-03 06:30 | NUR ---
Nursing Note: Pt laying on bed on her L side, eyes closed, respirations even and unlabored, no S&S of distress, will continue to monitor.
[2019-05-03] MEDS: digoxin 125mcg (0.125mg) tablet PO SCH (07:32)
[2019-05-03] MEDS: budesonide 0.5mg/2ml UD nebule IH SCH (07:39)
[2019-05-03] MEDS: albuterol 2.5 MG/3 ML nebule NEB SCH (07:39)
--- NOTE | 2019-05-03 07:57 | NUR ---
Nursing Note: Blood sugar taken at 0735, BS 150. Pt calm and cooperative. No S&S of distress, will continue to monitor.
--- NOTE | 2019-05-03 08:30 | NUR ---
Nursing Note: Pt laying in bed, so S&S of distress, r Addendum: 05/03/19 at 1042 by BETTY Continued: RR even and unlabored, will continue to monitor.
[2019-05-03] MEDS: metFORMIN 500mg tablet PO SCH (08:55)
[2019-05-03] MEDS: atorvastatin 20mg tablet PO SCH (08:57)
[2019-05-03] MEDS: losartan 50mg tablet PO SCH (08:57)
[2019-05-03] MEDS: furosemide 20MG tablet PO SCH (08:57)
[2019-05-03] MEDS: linagliptin 5mg tablet PO SCH (08:57)
[2019-05-03] MEDS: pantoprazole 40mg Tablet.DR PO SCH (08:58)
[2019-05-03] MEDS: insulin Lispro (HumaLOG) vial - multi-dose SQ SCH (09:02)
[2019-05-03] MEDS: clopidogrel 75mg tablet PO SCH (09:28)
[2019-05-03] MEDS: calcium carbonate/vitamin D3 tablet PO SCH (09:28)
[2019-05-03] MEDS: aspirin 325mg tablet, delayed-release (Ecotrin) PO SCH (09:28)
[2019-05-03] MEDS: potassium Cl 20 mEq SR tablet PO SCH (09:28)
[2019-05-03] MEDS: fentaNYL 50MCG/HOUR patch.TD72 TD SCH (09:29)
--- NOTE | 2019-05-03 10:41 | NUR ---
Nursing Note: Pt sitting on side of bed, no S&S of distress, RR even and unlabored, will continue to monitor.
[2019-05-03 11:00] VITALS: BP 125/53
--- NOTE | 2019-05-03 11:10 | NUR ---
Discharge Note: Pt discharged at 1105, ambulatory, to home with via personal vehicle. Pt took all items with her, including Bipap machine. Discharge instructions given and pt provided opportunity to ask questions. Pt denies SI and HI. When asked how she feels she stated, "fine, happy." No S&S of distress, RR even and unlabored. Pt discharged on 2L O2 with her personal oxygen.
[2019-05-05] MEDS ORDERED: ergocalciferol (Vitamin D) 50,000 unit capsule PO SCH (09:00)
== END 2019-05-03 11:05 | disposition home or self-care (01) ==
LOC: ER 14:27
DX: R45.851 Suicidal ideations (principal); R53.1 Weakness; I48.91 Unspecified atrial fibrillation; I25.10 Atherosclerotic heart disease of native coronary artery without angina pectoris; J44.9 Chronic obstructive pulmonary disease, unspecified; K21.9 Gastro-esophageal reflux disease without esophagitis; E11.9 Type 2 diabetes mellitus without complications; M19.90 Unspecified osteoarthritis, unspecified site; G89.29 Other chronic pain; M79.7 Fibromyalgia; M06.9 Rheumatoid arthritis, unspecified; I11.0 Hypertensive heart disease with heart failure; I50.9 Heart failure, unspecified; Z95.5 Presence of coronary angioplasty implant and graft; Z90.49 Acquired absence of other specified parts of digestive tract; Z79.4 Long term (current) use of insulin; Z88.5 Allergy status to narcotic agent; Z79.82 Long term (current) use of aspirin; Z79.899 Other long term (current) drug therapy
CPT/HCPCS: 36415; 80053; 80305; 80320; 81003; 82948; 82977; 84443; 85025; 94640; 94760; 96372; 99285; J1815; J2405; P9612; 99284; J7626